=== PATIENT | female | born 1965 | race Caucasian/White ===

== ENCOUNTER 2016-09-13 07:33 | Day surgery (SDC) | payer OTHER ==
[~2016-09-13 07:33] MED LIST: LACTATED RINGERS 1,000 ML IV ONE
[2016-09-13] MEDS ORDERED: fentaNYL 250 MCG/5 ML VIAL IVP ONE (08:30)
[2016-09-13] MEDS ORDERED: MIDAZOLAM 2 MG/2 ML VIAL IVP ONE (08:30)
== END 2016-09-13 07:34 | disposition home or self-care (01) ==
PROC: 0DJD8ZZ Inspection of Lower Intestinal Tract, Via Natural or Artificial Opening Endoscopic (ICD-10-PCS; principal; 2016-09-13 08:30)
DX: K62.5 Hemorrhage of anus and rectum (principal); R10.30 Lower abdominal pain, unspecified; K64.8 Other hemorrhoids; Z86.010 Personal history of colon polyps; Z80.0 Family history of malignant neoplasm of digestive organs; Z87.891 Personal history of nicotine dependence
CPT/HCPCS: 45378; J3010; J7120

== ENCOUNTER 2016-12-15 11:27 | Outpatient (CLI) | payer OTHER | END 2016-12-15 11:28 | disposition home or self-care (01) | DX: M25.521 Pain in right elbow (principal) ==

== ENCOUNTER 2016-12-29 06:30 | Outpatient (CLI) | payer OTHER ==
[2016-12-29 06:48] LABS: BASOPHILS % (AUTO) 0.9 %; EOSINOPHILS # (AUTO) 0.1 10^3/uL (0.0-0.7); EOSINOPHILS % (AUTO) 1.4 %; HGB - HEMOGLOBIN 13.6 g/dL (12.0-16.0); LYMPHOCYTES # (AUTO) 1.4 10^3/uL (1.5-3.5); LYMPHOCYTES % (AUTO) 32.3 %; MEAN CORPUSCULAR VOLUME 91.1 fL (81.0-99.0); MEAN PLATELET VOLUME 9.4 fL (7.9-10.8); MONOCYTES # (AUTO) 0.4 10^3/uL (0.0-1.0); MONOCYTES % (AUTO) 9.9 %; NEUTROPHILS # (AUTO) 2.4 10^3/uL (1.5-6.6); NEUTROPHILS % (AUTO) 55.5 %; NUCLEATED RED BLOOD CELLS AUTO 0.2 /100WBC; RED BLOOD COUNT 4.39 10^6/uL (4.20-5.40); RED CELL DISTRIBUTION WIDTH 12.5 % (12.0-15.0); UNCORRECTED WHITE BLOOD COUNT 4.4 x10^3/uL; WHITE BLOOD COUNT 4.4 x10^3/uL (4.8-10.8)
[2016-12-29 07:04] LABS: ALBUMIN/GLOBULIN RATIO 1.6 (1.0-2.2); BUN - BLOOD UREA NITROGEN 15 mg/dL (6-20); CALCIUM 9.2 mg/dL (8.5-10.3); CARBON DIOXIDE - CO2 27 mmol/L (21-32); CHLORIDE 104 mmol/L (101-111); CHOL/HDL RATIO 3.5 (<4.4); CHOLESTEROL 209 mg/dL; CREATININE 0.7 mg/dL (0.4-1.0); GFR - MDRD 88 (>89); GLUCOSE 102 mg/dL (70-100); HDL CHOLESTEROL 60 mg/dL; LDL/HDL RATIO 2.2 (<4.4); POTASSIUM 4.2 mmol/L (3.5-5.0); SODIUM 137 mmol/L (135-145); TOTAL PROTEIN 7.3 g/dL (6.7-8.2); TRIGLYCERIDES 92 mg/dL; VLDL CHOLESTEROL 18 mg/dL
== END 2016-12-29 06:31 | disposition home or self-care (01) ==
LOC: LAB 06:30
PROVIDERS: ATTEND Physician Assistant Medical
DX: Z00.00 Encounter for general adult medical examination without abnormal findings (principal)
CPT/HCPCS: 36415; 80053; 80061; 84443; 85025

== ENCOUNTER 2017-01-09 07:54 | Emergency (ER) | payer OTHER ==
--- NOTE | 2017-01-09 08:31 | ED Physician Documentation ---
History of Present Illness - Stated complaint Stated Complaint: CHEST PX/BACK PX - Chief complaint Chief Complaint: Cardiac - Additonal information Additional information: hx from pt 51 female hx HTN not CAD posterior L shoulder ache all night and this AM sharp int brief ant chest pains no soa no change in night sweats she has 2.2 menopause no fever no cough no abd pain no leg swelling no reecent travel HTN but no DM no hyperlipidemia non smoker no fhx CAD Review of Systems Constitutional: denies: Fever, Chills Cardiac: reports: Chest pain / pressure GI: denies: Abdominal Pain, Nausea, Vomiting Musculoskeletal: reports: Back pain Neurologic: denies: Generalized weakness Endocrine: denies: Easy bruising / bleeding Immunocompromised: denies: Immunocompromised PD PAST MEDICAL HISTORY - Past Medical History Cardiovascular: Hypertension Respiratory: None GI: None, Colon polyps : None HEENT: None Psych: Anxiety Musculoskeletal: Other - Past Surgical History Past Surgical History: Yes General: Appendectomy, Colonoscopy 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, 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 - Present Medications Home Medications: Ambulatory Orders Medication Instructions Recorded Confirmed Lisinopril 10 mg PO DAILY 01/31/13 01/09/17 - Allergies Allergies/Adverse Reactions: Allergies Allergy/AdvReac Type Severity Reaction Status Date / Time No Known Drug Allergies Allergy Verified 01/09/17 08:15 - Social History Does the pt smoke?: No Smoking Status: Never smoker Does the pt drink ETOH?: Yes Does the pt have substance abuse?: No - Immunizations Immunizations are current?: Yes - POLST Patient has POLST: No PD ED PE NORMAL - Vitals Vital signs reviewed: Yes - General General: Alert and oriented X 3 - HEENT HEENT: PERRL - Neck Neck: Supple, no meningeal sign - Cardiac Cardiac: RRR - Respiratory Respiratory: No respiratory distress, Clear bilaterally - Abdomen Abdomen: Soft, Non tender - Derm Derm: Normal color - Extremities Extremities: No deformity, Normal ROM s pain, No edema, No calf tenderness / cord - Neuro Neuro: Alert and oriented X 3 Results - Vitals Vitals: Vital Signs - 24 hr 01/09/17 01/09/17 08:11 08:39 Temperature 36.4 C L Heart Rate 61 57 L Respiratory 16 17 Rate Blood Pressure 160/105 H 134/83 H O2 Saturation 100 100 Oxygen O2 Source Room air - EKG (time done) 0805 Rate: Rate (enter#) Rhythm: NSR [place]: Normal Intervals: Normal CT QRS: Normal Ischemia: Non specific changes (inv T III flat AVF) - Labs Labs: Laboratory Tests 01/09/17 01/09/17 01/09/17 08:38 08:38 08:38 WBC 4.5 L RBC 4.45 Hgb 13.6 Hct 40.0 MCV 89.9 MCH 30.5 MCHC 34.0 RDW 12.5 Plt Count 183 MPV 9.1 Neut # 2.8 Lymph # 1.3 L Gallia # 0.3 Eos # 0.0 Baso # 0.0 Absolute Nucleated RBC 0.00 Nucleated RBCs 0.0 D-Dimer Sodium 137 Potassium 4.0 Chloride 101 Carbon Dioxide 29 Anion Gap 7.0 BUN 13 Creatinine 0.7 Estimated GFR (MDRD) 88 L Glucose 91 Calcium 9.3 Total Bilirubin 0.6 AST 24 ALT 18 Alkaline Phosphatase 54 Troponin I < 0.04 Total Protein 7.4 Albumin 4.5 Globulin 2.9 Albumin/Globulin Ratio 1.6 Lipase 34 01/09/17 08:38 WBC RBC Hgb Hct MCV MCH MCHC RDW Plt Count MPV Neut # Lymph # Gallia # Eos # Baso # Absolute Nucleated RBC Nucleated RBCs D-Dimer < 200.0 L Sodium Potassium Chloride Carbon Dioxide Anion Gap BUN Creatinine Estimated GFR (MDRD) Glucose Calcium Total Bilirubin AST ALT Alkaline Phosphatase Troponin I Total Protein Albumin Globulin Albumin/Globulin Ratio Lipase - Rads (name of study) CXR Radiology: See rad report (normal, nl tight aortic known, no cap no effusion) PD MEDICAL DECISION MAKING - ED course ED course: neg trop after sx all night essentially rules out ACS neg PERC except 1 yr over 50 - so got d dimer and it is neg too ed symm BPs and tight aortic known on CXR doubt aneurysm or dissection will reassure and dc Departure - Departure Disposition: 01 Home, Self Care Clinical Impression: Chest pain Qualifiers: Chest pain type: unspecified Qualified Code(s): R07.9 - Chest pain, unspecified Condition: Good Instructions: ED Chest Pain Atypical Unkn Cause Follow-Up: Preeti Clayton PA-C [Primary Care Provider] - Comments: The EKG and blood tests are reassuring and it does not seem you have had a heart attack The xray and blood pressures indicate you do not have an aortic aneursym and dissection (tear) And the d dimer blood test was negative indicating you do not have a blood clot in your lungs Unfortunately I am not sure what did cause the pain But the most dangerous causes of chest pain have been considered and ruled out and you are feeling better so i think it is OK for you to go home. May tale tylenol and motrin as needed. Please follow up with your PMD for a recheck this week unless completely better - and to get your blood pressure rechecked - it was high today Return to the ER if worse or new symptoms develop Forms: Activity restrictions
[2017-01-09 08:48] LABS: BASOPHILS % (AUTO) 0.6 %; EOSINOPHILS % (AUTO) 0.9 %; HGB - HEMOGLOBIN 13.6 g/dL (12.0-16.0); LYMPHOCYTES # (AUTO) 1.3 10^3/uL (1.5-3.5); MEAN CORPUSCULAR HEMOGLOBIN 30.5 pg (27.0-31.0); MEAN CORPUSCULAR VOLUME 89.9 fL (81.0-99.0); MEAN PLATELET VOLUME 9.1 fL (7.9-10.8); MONOCYTES # (AUTO) 0.3 10^3/uL (0.0-1.0); MONOCYTES % (AUTO) 7.7 %; NEUTROPHILS # (AUTO) 2.8 10^3/uL (1.5-6.6); NEUTROPHILS % (AUTO) 61.8 %; RED BLOOD COUNT 4.45 10^6/uL (4.20-5.40); RED CELL DISTRIBUTION WIDTH 12.5 % (12.0-15.0); UNCORRECTED WHITE BLOOD COUNT 4.5 x10^3/uL; WHITE BLOOD COUNT 4.5 x10^3/uL (4.8-10.8)
[2017-01-09 09:01] LABS: ALBUMIN/GLOBULIN RATIO 1.6 (1.0-2.2); BILIRUBIN,TOTAL 0.6 mg/dL (0.2-1.0); CALCIUM 9.3 mg/dL (8.5-10.3); CREATININE 0.7 mg/dL (0.4-1.0); TOTAL PROTEIN 7.4 g/dL (6.7-8.2)
--- NOTE | 2017-01-09 09:10 | XRAY Preliminary Report ---
Exam: XR Chest 2 View PA/LAT Impression: Normal radiographs of the chest. Interval resolution of the previously demonstrated right lower lobe infiltrate. [facility] SITE ID: [id number]
--- NOTE | 2017-01-09 09:13 | XRAY Report ---
EXAM: CHEST RADIOGRAPHY EXAM DATE: 01/09/2017 08:24 AM. CLINICAL HISTORY: Chest pain. COMPARISON: 07/03/2013. TECHNIQUE: 2 views. FINDINGS: The heart is nonenlarged. There is no pulmonary mass, infiltrate, pleural effusion or pneumothorax. T he previously demonstrated right lower lobe infiltrate has resolved. Impression: Normal radiographs of the chest. Interval resolution of the previously demonstrated right lower lobe infiltrate. [facility] Referring Provider Line: [phone] SITE ID: [id number]
[2017-01-09 10:35] VITALS: BP 121/68
== END 2017-01-09 10:36 | disposition home or self-care (01) ==
LOC: ED 07:54
DX: R07.9 Chest pain, unspecified (principal); I10 Essential (primary) hypertension; Z86.010 Personal history of colon polyps
CPT/HCPCS: 36415; 71020; 80053; 83690; 84484; 85025; 85379; 93005; 93010; 99284

== ENCOUNTER 2017-01-12 13:51 | Outpatient (CLI) | payer OTHER | END 2017-01-12 13:52 | disposition home or self-care (01) | LOC: CAM 13:51 | PROVIDERS: ATTEND Physician Assistant Medical | DX: M25.521 Pain in right elbow (principal) | CPT/HCPCS: 97810; 97811 ==

== ENCOUNTER 2017-01-19 13:28 | Outpatient (CLI) | payer OTHER | END 2017-01-19 13:29 | disposition home or self-care (01) | LOC: CAM 13:28 | PROVIDERS: ATTEND Physician Assistant Medical | DX: M25.521 Pain in right elbow (principal) | CPT/HCPCS: 97813; 97814 ==

== ENCOUNTER 2017-01-26 14:12 | Outpatient (CLI) | payer OTHER | END 2017-01-26 14:13 | disposition home or self-care (01) | LOC: CAM 14:12 | PROVIDERS: ATTEND Physician Assistant Medical | DX: M25.521 Pain in right elbow (principal) | CPT/HCPCS: 97813; 97814 ==

== ENCOUNTER 2017-02-02 13:15 | Outpatient (CLI) | payer OTHER | END 2017-02-02 13:16 | disposition home or self-care (01) | LOC: CAM 13:15 | PROVIDERS: ATTEND Physician Assistant Medical | DX: M25.521 Pain in right elbow (principal) | CPT/HCPCS: 97813; 97814 ==

== ENCOUNTER 2017-02-09 14:23 | Outpatient (CLI) | payer OTHER | END 2017-02-09 14:24 | disposition home or self-care (01) | LOC: CAM 14:23 | PROVIDERS: ATTEND Physician Assistant Medical | DX: M25.521 Pain in right elbow (principal) | CPT/HCPCS: 97813; 97814 ==

== ENCOUNTER 2017-02-21 15:14 | Outpatient (CLI) | payer OTHER ==
--- NOTE | 2017-02-23 09:54 | XRAY Report ---
RIGHT ELBOW, THREE VIEWS: 02/21/2017 CLINICAL HISTORY: Tennis elbow. FINDINGS: Soft tissue appears normal. Minor spur is seen along the superior posterior aspect of the olecranon. No significant joint space narrowing is seen. No soft tissue calcification is noted. IMPRESSION: MINOR SPUR IS NOTED ALONG THE POSTERIOR SUPERIOR ASPECT OF THE OLECRANON WITHOUT OTHER A BNORMALITY. JOB #: [id number] EXT JOB #:[id number]
== END 2017-02-21 15:15 | disposition home or self-care (01) ==
LOC: DI 15:14
PROVIDERS: ATTEND Physician Assistant Medical
DX: M77.9 Enthesopathy, unspecified (principal)

== ENCOUNTER 2017-08-24 13:43 | Outpatient (CLI) | payer OTHER ==
--- NOTE | 2017-08-25 16:49 | Mammography Report ---
DATE OF SERVICE: 08/24/2017 DIGITAL SCREENING MAMMOGRAM: 08/24/2017 CLINICAL INDICATION: A 52-year-old with history of late childbearing, family history of breast cancer, history of benign right breast biopsy, for screening. COMPARISON: 06/2016, 02/2016, 07/2015, 06/2015, 03/2014, 03/2013, 03/2012, 02/2011. TECHNIQUE: Routine CC and MLO projections were obtained of the breasts. FINDINGS: The breasts again demonstrate scattered fibroglandular densities bilaterally. Postbiopsy changes in the right upper central breast are stable. Punctate, typically benign calcifications are present. No suspicious masses, clustered microcalcifications, or regions of architectural distortion are identified. IMPRESSION: BENIGN FINDINGS. RECOMMENDATION: ROUTINE ANNUAL SCREENING UNLESS OTHERWISE CLINICALLY INDICATED. BIRADS CATEGORY 2-BENIGN FINDINGS. STANDARD QUALIFYING STATEMENTS: 1. This examination was reviewed with the aid of Computer-Aided Detection (CAD). 2. A negative or benign imaging report should not delay biopsy if clinically suspicious findings are present. Consider surgical consultation if warranted. More than 5% of cancers are not identified by imaging. 3. Dense breasts may obscure an underlying neoplasm. TD: 08/25/2017 17:48
== END 2017-08-24 13:44 | disposition home or self-care (01) ==
LOC: DI 13:43
PROVIDERS: ATTEND Physician Assistant Medical
DX: Z12.31 Encounter for screening mammogram for malignant neoplasm of breast (principal); Z80.3 Family history of malignant neoplasm of breast
CPT/HCPCS: 77067

== ENCOUNTER 2017-09-21 08:15 | Outpatient (CLI) | payer OTHER ==
[2017-09-21 08:31] LABS: BASOPHILS % (AUTO) 0.7 %; EOSINOPHILS # (AUTO) 0.1 10^3/uL (0.0-0.7); EOSINOPHILS % (AUTO) 1.5 %; LYMPHOCYTES # (AUTO) 1.4 10^3/uL (1.5-3.5); LYMPHOCYTES % (AUTO) 30.7 %; MEAN CORPUSCULAR HEMOGLOBIN 31.2 pg (27.0-31.0); MEAN CORPUSCULAR VOLUME 91.5 fL (81.0-99.0); MEAN PLATELET VOLUME 8.5 fL (7.9-10.8); MONOCYTES # (AUTO) 0.4 10^3/uL (0.0-1.0); NEUTROPHILS # (AUTO) 2.6 10^3/uL (1.5-6.6); NEUTROPHILS % (AUTO) 58.1 %; PLT - PLATELET COUNT 191 10^3/uL (130-450); RED BLOOD COUNT 4.49 10^6/uL (4.20-5.40); RED CELL DISTRIBUTION WIDTH 12.8 % (12.0-15.0); WHITE BLOOD COUNT 4.4 x10^3/uL (4.8-10.8)
[2017-09-21 08:50] LABS: ALBUMIN 4.8 g/dL (3.2-5.5); ALBUMIN/GLOBULIN RATIO 1.5 (1.0-2.2); ALKALINE PHOSPHATASE 58 IU/L (42-121); ALT ALANINE AMINOTRANSFERASE 29 IU/L (10-60); AST ASPARTATE AMINOTRANSFERASE 36 IU/L (10-42); BILIRUBIN,TOTAL 0.8 mg/dL (0.2-1.0); BUN - BLOOD UREA NITROGEN 12 mg/dL (6-20); CALCIUM 9.4 mg/dL (8.5-10.3); CARBON DIOXIDE - CO2 26 mmol/L (21-32); CHLORIDE 98 mmol/L (101-111); CHOL/HDL RATIO 2.9 (<4.4); CHOLESTEROL 268 mg/dL; CREATININE 0.8 mg/dL (0.4-1.0); GFR - MDRD 75 (>89); GLUCOSE 98 mg/dL (70-100); HDL CHOLESTEROL 93 mg/dL; LDL CHOLESTEROL,CALCULATED 159 mg/dL; LDL/HDL RATIO 1.7 (<4.4); SODIUM 136 mmol/L (135-145); TOTAL PROTEIN 7.9 g/dL (6.7-8.2); VLDL CHOLESTEROL 16 mg/dL
[2017-09-22 13:42] LABS: HEPATITIS C ANTIBODY NON-REACTIVE (NON-REACTIVE)
== END 2017-09-21 08:16 | disposition home or self-care (01) ==
LOC: LAB 08:15
PROVIDERS: ATTEND Physician Assistant Medical
DX: Z00.00 Encounter for general adult medical examination without abnormal findings (principal); Z11.59 Encounter for screening for other viral diseases; Z72.89 Other problems related to lifestyle
CPT/HCPCS: 36415; 80053; 80061; 83721; 84443; 85025; 86803

== ENCOUNTER 2018-06-21 10:14 | Outpatient (CLI) | payer OTHER ==
--- NOTE | 2018-06-21 11:40 | XRAY Report ---
Reason: HIP JOINT PAIN, RIGHT Procedure Date: 06/21/2018 Accession Number: [id number] / [id number] Procedure: XR - Hip w/Pelvis 2-3V RT CPT Code: FULL RESULT: EXAM: RIGHT HIP AND PELVIS RADIOGRAPHY EXAM DATE: 06/21/2018 10:34 AM. HISTORY: Hip joint pain, right. COMPARISONS: None. TECHNIQUE: 1 view of the pelvis and 1 view of the hip. FINDINGS: Bones: Normal. No fracture or bone lesion. Joints: The bilateral hip, pubis symphysis, and sacroiliac joints are preserved. Degenerative disk changes noted at L4-L5 and bilateral facet arthrosis noted at L4-L5 and L5-S1. Soft Tissues: Normal. No soft tissue swelling. IMPRESSION: Normal pelvis and hip radiography. [facility]
--- NOTE | 2018-06-21 11:42 | XRAY Report ---
Reason: CERVICALGIA Procedure Date: 06/21/2018 Accession Number: [id number] / [id number] Procedure: XR - Cervical Spine Complete CPT Code: FULL RESULT: EXAM: CERVICAL SPINE RADIOGRAPHY EXAM DATE: 06/21/2018 10:34 AM. CLINICAL HISTORY: Cervicalgia. COMPARISONS: CERVICAL SPINE W/O 11/27/2014 11:21 AM. TECHNIQUE: 5 views. FINDINGS: Alignment: Normal. No spondylolisthesis or scoliosis. Normal motion through flexion and extension. Bones: The cervical vertebral bodies and posterior elements are well-visualized from the skull base through C7-T1. No fractures or bone lesions. Disks: Mild disk space narrowing and anterior osteophyte at C5-C6. Facets: No degenerative disease. Neural Foramina: Not specifically evaluated. Soft Tissues: Normal. No prevertebral soft tissue swelling. The visualized lung apices are clear. IMPRESSION: Normal cervical spine radiography for age. [facility]
== END 2018-06-21 10:15 | disposition home or self-care (01) ==
LOC: DI 10:14
PROVIDERS: ATTEND Physician Assistant Medical
DX: M54.2 Cervicalgia (principal); M25.551 Pain in right hip
CPT/HCPCS: 72050

== ENCOUNTER 2018-08-24 08:05 | Outpatient (CLI) | payer BC ==
[2018-08-24 08:25] LABS: BASOPHILS % (AUTO) 0.6 %; EOSINOPHILS # (AUTO) 0.1 10^3/uL (0.0-0.7); EOSINOPHILS % (AUTO) 1.8 %; HGB - HEMOGLOBIN 13.9 g/dL (12.0-16.0); LYMPHOCYTES # (AUTO) 1.1 10^3/uL (1.5-3.5); LYMPHOCYTES % (AUTO) 28.1 %; MEAN CORPUSCULAR HGB CONC 34.5 g/dL (32.0-36.0); MEAN CORPUSCULAR VOLUME 92.8 fL (81.0-99.0); MONOCYTES # (AUTO) 0.3 10^3/uL (0.0-1.0); MONOCYTES % (AUTO) 8.8 %; NEUTROPHILS # (AUTO) 2.3 10^3/uL (1.5-6.6); NEUTROPHILS % (AUTO) 60.7 %; PLT - PLATELET COUNT 186 10^3/uL (130-450); RED BLOOD COUNT 4.35 10^6/uL (4.20-5.40); WHITE BLOOD COUNT 3.9 x10^3/uL (4.8-10.8)
[2018-08-24 09:36] LABS: ALBUMIN 4.6 g/dL (3.2-5.5); ALBUMIN/GLOBULIN RATIO 1.5 (1.0-2.2); ALKALINE PHOSPHATASE 60 IU/L (42-121); ALT ALANINE AMINOTRANSFERASE 18 IU/L (10-60); AST ASPARTATE AMINOTRANSFERASE 27 IU/L (10-42); BILIRUBIN,TOTAL 0.6 mg/dL (0.2-1.0); BUN - BLOOD UREA NITROGEN 10 mg/dL (6-20); CALCIUM 9.4 mg/dL (8.5-10.3); CARBON DIOXIDE - CO2 29 mmol/L (21-32); CHLORIDE 103 mmol/L (101-111); CHOLESTEROL 256 mg/dL; CREATININE 0.8 mg/dL (0.4-1.0); GFR - MDRD 75 (>89); GLUCOSE 87 mg/dL (70-100); HDL CHOLESTEROL 86 mg/dL; LDL CHOLESTEROL,CALCULATED 145 mg/dL; LDL/HDL RATIO 1.7 (<4.4); SODIUM 138 mmol/L (135-145); TOTAL PROTEIN 7.7 g/dL (6.7-8.2); VLDL CHOLESTEROL 25 mg/dL
== END 2018-08-24 08:06 | disposition home or self-care (01) ==
LOC: LAB 08:05
PROVIDERS: ATTEND Physician Assistant Medical
DX: Z00.00 Encounter for general adult medical examination without abnormal findings (principal)
CPT/HCPCS: 36415; 80053; 80061; 83721; 84443; 85025

== ENCOUNTER 2018-08-29 11:21 | Outpatient (CLI) | payer BC ==
--- NOTE | 2018-08-30 08:38 | Mammography Report ---
Reason: SCREENING MAMMO Procedure Date: 08/29/2018 Accession Number: [id number] / [id number] Procedure: JAKOB - Screening Mammo w/Og CPT Code: FULL RESULT: EXAM: Screening Mammo w/Og DATE: 08/29/2018 11:55 AM CLINICAL HISTORY: Screening encounter. History of late childbearing. Family history of breast cancer in the mother at the age of 62. Right breast biopsy in 2016, benign pathology. TECHNIQUE: Bilateral CC and MLO views were obtained. COMPARISON: 08/24/2017 through 03/12/2014. FINDINGS: The breasts demonstrate scattered fibroglandular densities bilaterally. A biopsy marker is seen in the right breast, stable. No suspicious masses, clustered microcalcifications, or regions of architectural distortion are identified. IMPRESSION: Benign findings RECOMMENDATION: Routine annual screening unless otherwise clinically indicated. BIRADS CATEGORY 2: Benign findings STANDARD QUALIFYING STATEMENTS: 1. This examination was not reviewed with the aid of Computer-Aided Detection (CAD). 2. A negative or benign imaging report should not preclude biopsy if clinically suspicious findings are present. 3. Dense breasts may obscure an underlying neoplasm. 4. This examination was reviewed with the aid of 3D breast imaging (tomosynthesis).
== END 2018-08-29 11:22 | disposition home or self-care (01) ==
LOC: DI 11:21
PROVIDERS: ATTEND Physician Assistant Medical
DX: Z12.31 Encounter for screening mammogram for malignant neoplasm of breast (principal); Z80.3 Family history of malignant neoplasm of breast
CPT/HCPCS: 77063; 77067

== ENCOUNTER 2019-04-22 09:13 | Observation (INO) | payer BC ==
--- NOTE | 2019-04-22 09:39 | ED Physician Documentation ---
PD HPI DYSPNEA - Stated complaint Stated Complaint: RAPID HEART RATE - Chief complaint Chief Complaint: Cardiac - History obtained from History obtained from: Patient - History of Present Illness Timing - onset: How many days ago (The patient states she been feeling a little bit fatigued and slightly short of breath for several days up to a week. She noticed it with running last week and then had been more dyspneic with activity and slight lightheaded last day or 2. 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 She was directed to the ER. She was found to be in rapid atrial fibrillation.) Timing - onset during: Rest Timing - duration: Days Timing - details: Abrupt onset, Still present Inciting event(s): Other (She drinks a little bit more on weekends but not every day. She had not had any stimulants medications such as drugs. She had not had any recent illness. She denies any recent dehydrating events.). No: URI Worsened by: Exertion. No: Laying flat Associated symptoms: Palpitations. No: Cough, Wheezing, Chest pain / discomfort, Bilateral edema Similar symptoms before: Has not had sx before (She had a chest pain episode and some anxiety type symptoms about 6 years ago and had an echocardiogram and I believe a Holter monitor and saw Dr. Catracho Royal. However no abnormalities were found.) Recently seen: Not recently seen Review of Systems Constitutional: denies: Fever, Chills Nose: denies: Rhinorrhea / runny nose, Congestion Throat: denies: Sore throat Cardiac: reports: Palpitations. denies: Chest pain / pressure, Pedal edema, Calf pain Respiratory: denies: Cough GI: denies: Abdominal Pain, Nausea, Vomiting, Diarrhea : denies: Dysuria, Frequency Neurologic: reports: Generalized weakness. 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 - Present Medications Home Medications: Ambulatory Orders Medication Instructions Recorded Confirmed Lisinopril 10 mg PO DAILY 01/31/13 04/22/19 - Allergies Allergies/Adverse Reactions: Allergies Allergy/AdvReac Type Severity Reaction Status Date / Time No Known Drug Allergies Allergy Verified 04/22/19 09:23 - Social History Does the pt smoke?: No Smoking Status: Never smoker Does the pt drink ETOH?: Yes Does the pt have substance abuse?: No - Immunizations Immunizations are current?: Yes - POLST Patient has POLST: No PD ED PE NORMAL - Vitals Vital signs reviewed: Yes - General General: Alert and oriented X 3, No acute distress, Well developed/nourished - HEENT HEENT: Moist mucous membranes, Pharynx benign - Neck Neck: Supple, no meningeal sign, No adenopathy, No JVD - Cardiac Cardiac: No murmur. No: RRR (irregular and rapid) - Respiratory Respiratory: Clear bilaterally - Abdomen Abdomen: Soft, Non tender - Back Back: No CVA TTP - Derm Derm: Normal color, Warm and dry - Extremities Extremities: No deformity, No tenderness to palpate, Normal ROM s pain, No edema, No calf tenderness / cord - Neuro Neuro: Alert and oriented X 3, No motor deficit, Normal speech Eye Opening: Spontaneous Motor: Obeys Commands Verbal: Oriented GCS Score: 15 Results - Vitals Vitals: Vital Signs - 24 hr 04/22/19 04/22/19 04/22/19 09:18 09:29 10:10 Temperature 35.7 C L Heart Rate 139 H 140 H 122 H Respiratory 12 16 18 Rate Blood Pressure 145/113 H 147/124 H 133/96 H O2 Saturation 100 100 100 04/22/19 04/22/19 04/22/19 10:22 11:11 12:00 Temperature Heart Rate 84 84 97 Respiratory 18 18 12 Rate Blood Pressure 114/69 125/90 H 113/76 O2 Saturation 100 100 100 04/22/19 04/22/19 04/22/19 12:30 12:56 13:06 Temperature Heart Rate 111 H 88 79 Respiratory 19 24 22 Rate Blood Pressure 130/91 H 141/101 H 125/96 H O2 Saturation 100 99 100 04/22/19 04/22/19 04/22/19 13:15 13:27 13:30 Temperature Heart Rate 85 88 90 Respiratory 14 21 16 Rate Blood Pressure 125/85 H 123/82 H 122/93 H O2 Saturation 100 100 98 Oxygen O2 Source Room air - EKG (time done) 09:15 Rate: Rate (enter#) (140) Rhythm: Atrial fibrillation QRS: Normal Ischemia: Normal ST segments. No: ST elevation c/w ischemia, ST depression Compare to prior EKG: Old EKG unavailable - Labs Labs: Laboratory Tests 04/22/19 04/22/19 04/22/19 09:20 09:20 09:20 WBC RBC Hgb Hct MCV MCH MCHC RDW Plt Count MPV Neut # (Auto) Lymph # (Auto) [place] # (Auto) Eos # (Auto) Baso # (Auto) Absolute Nucleated RBC Nucleated RBC % Sodium Potassium Chloride Carbon Dioxide Anion Gap BUN Creatinine Estimated GFR (MDRD) Glucose Calcium Magnesium 1.9 Total Bilirubin AST ALT Alkaline Phosphatase Troponin I High Sens 7.3 B-Natriuretic Peptide 195 H Total Protein Albumin Globulin Albumin/Globulin Ratio Lipase TSH 04/22/19 04/22/19 04/22/19 09:20 09:27 09:27 WBC 6.4 RBC 4.75 Hgb 15.0 Hct 44.4 MCV 93.5 MCH 31.6 H MCHC 33.8 RDW 11.7 L Plt Count 211 MPV 11.3 H Neut # (Auto) 3.7 Lymph # (Auto) 2.0 [place] # (Auto) 0.6 Eos # (Auto) 0.1 Baso # (Auto) 0.0 Absolute Nucleated RBC 0.00 Nucleated RBC % 0.0 Sodium 139 Potassium 4.3 Chloride 100 L Carbon Dioxide 28 Anion Gap 11.0 BUN 21 H Creatinine 0.9 Estimated GFR (MDRD) 65 L Glucose 105 H Calcium 9.9 Magnesium Total Bilirubin 0.6 AST 23 ALT 17 Alkaline Phosphatase 65 Troponin I High Sens B-Natriuretic Peptide Total Protein 7.9 Albumin 4.6 Globulin 3.3 Albumin/Globulin Ratio 1.4 Lipase 52 H TSH 1.91 PD MEDICAL DECISION MAKING - ED course Complexity details: re-evaluated patient (Heart rate slowed will diltiazem for a while and then went back up to 120s. She is given a second dose and it did improve it down to under 100. She is given procainamide 1 g over an hour and a half. This is allowing her heart rate to be slow at 8200. However it still fibrillation. This is a new onset fibrillation of unclear onset time but apparently somewhere in the last several days to week. She will need further heart testing of echo and also anticoagulated. My main concern in the short- term is ensuring rate control with proper oral medications. I talked with the hospitalist who agreed to have her in for further evaluation and rate control.), considered differential, d/w patient Departure - Departure Disposition: ED Place in Observation Clinical Impression: New onset atrial fibrillation, Atrial fibrillation with rapid ventricular response Condition: Stable Record reviewed to determine appropriate education?: Yes
[2019-04-22 09:51] LABS: BASOPHILS % (AUTO) 0.6 %; EOSINOPHILS # (AUTO) 0.1 10^3/uL (0.0-0.7); EOSINOPHILS % (AUTO) 1.1 %; LYMPHOCYTES % (AUTO) 31.7 %; MEAN CORPUSCULAR HEMOGLOBIN 31.6 pg (27.0-31.0); MEAN CORPUSCULAR HGB CONC 33.8 g/dL (32.0-36.0); MEAN CORPUSCULAR VOLUME 93.5 fL (81.0-99.0); MEAN PLATELET VOLUME 11.3 fL (7.9-10.8); MONOCYTES # (AUTO) 0.6 10^3/uL (0.0-1.0); MONOCYTES % (AUTO) 8.7 %; NEUTROPHILS # (AUTO) 3.7 10^3/uL (1.5-6.6); NEUTROPHILS % (AUTO) 57.4 %; PLT - PLATELET COUNT 211 10^3/uL (130-450); RED BLOOD COUNT 4.75 10^6/uL (4.20-5.40); RED CELL DISTRIBUTION WIDTH 11.7 % (12.0-15.0); WHITE BLOOD COUNT 6.4 x10^3/uL (4.8-10.8)
--- NOTE | 2019-04-22 10:03 | XRAY Report ---
Reason: palpitations, new onset afib Procedure Date: 04/22/2019 Accession Number: [id number] / [id number] Procedure: XR - Chest 1 View X-Ray CPT Code: 57323 FULL RESULT: EXAM: CHEST RADIOGRAPHY EXAM DATE: 04/22/2019 09:54 AM. CLINICAL HISTORY: Palpitations, new onset afib. COMPARISON: CHEST 2 VIEW PA/LAT 01/09/2017 8:14 AM. TECHNIQUE: 1 view. FINDINGS: Lungs/Pleura: No focal opacities evident. No pleural effusion. No pneumothorax. Mediastinum: Size is normal per aorta is mildly tortuous. Other: None. IMPRESSION: 1. No acute disease in the chest. [facility]
[2019-04-22] MEDS ORDERED: diltiaZEM INJ 5 MG/ML VIAL IVP STA ×2 (10:08→12:30)
[2019-04-22] MEDS ORDERED: PROCAINAMIDE 100 MG/1 ML 10 ML MDV IV ONE (10:08)
[2019-04-22] MEDS ORDERED: SODIUM CHLORIDE 0.9% 1,000 ML IV ONE ×2 (10:10→11:30)
[2019-04-22 10:18] LABS: ALBUMIN 4.6 g/dL (3.2-5.5); ALBUMIN/GLOBULIN RATIO 1.4 (1.0-2.2); BILIRUBIN,TOTAL 0.6 mg/dL (0.2-1.0); CALCIUM 9.9 mg/dL (8.5-10.3); CREATININE 0.9 mg/dL (0.4-1.0); TOTAL PROTEIN 7.9 g/dL (6.7-8.2)
[2019-04-22] MEDS ORDERED: PROCAINAMIDE 100 MG/1 ML 10 ML MDV IV STA (10:37)
[2019-04-22] MEDS ORDERED: PROCAINAMIDE 1,000 MG in SODIUM CHLORIDE 0.9% 240 ML IV STA (10:40)
[2019-04-22] MEDS ORDERED: KETOROLAC 30 MG/ML VIAL IVP STA (12:30)
[2019-04-22] MEDS ORDERED: SODIUM CHLORIDE FLUSH 0.9% 10 ML SYRINGE IVP PRN (13:51)
[2019-04-22] MEDS ORDERED: ACETAMINOPHEN 325 MG TABLET PO PRN (13:51)
[2019-04-22] MEDS ORDERED: PROCHLORPERAZINE 10 MG/2 ML VIAL IVP PRN (13:51)
[2019-04-22] MEDS ORDERED: oxyCODONE 5 MG TABLET PO PRN (13:51)
[2019-04-22] MEDS ORDERED: diltiaZEM CD 120 MG CAPSULE PO SCH (13:56)
[2019-04-22] MEDS ORDERED: diltiaZEM CD 180 MG CAPSULE PO SCH ×2 (14:27→15:09)
--- NOTE | 2019-04-22 14:28 | HISTORY & PHYSICAL EXAMINATION ---
Chief Complaint - Chief Complaint Chief Complaint: dyspnea History of Present Illness - History of Present Illness HPI Comment/Other: Ms. Medina is a 53-yrs old female with a PMH history of HTN, anxiety, who present ER complain of palpitation, tired and mild shortness of breath. pt report she felt fatigued and slightly short of breath for about one week. she also report slight lightheaded and palpitation. pt report her brother was diagnosis of Afib at 54yrs old. Her mother had hx of Afib, her father had pacemaker. she denies chest pain, pre-syncope or syncope, fever, chill, cough. pt was found to have HR at 140 with afib on ER. ECHO done at ER reveals unremarkable with normal EF. Because of unclear the exact time pt started to have Afib, cardiac conversion was not performed. Pt's CHADSVASC score is 2. Discussion with pt for if starting on anticoagulation, pt state she prefer to talk with her wagon driver on this week first. pt was given IV of cardizem and IV drop of procainamide, pt's HR is down to about 100. pt report she feel much better after treatment. she denies palpitation or shortness of breath any more. pt is admitted in observation unit for further management. History - Past Medical History Cardiovascular: reports: Hypertension Respiratory: reports: None GI: reports: None, Colon polyps : reports: None HEENT: reports: None Psych: reports: Anxiety Musculoskeletal: reports: Other MRSA Hx?: No - Past Surgical History General: reports: Appendectomy, Colonoscopy Ortho: reports: Other /OCULAR CARE AIDE: reports: section, 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 - Family & Social History Family History: Mother: , CAD, Father: , CAD Family History Comment/Other: pt report her mother had hx of afib, her father had hx of dysrhythmia with pacemaker, her brother had afib at age 54 Living arrangement: At home Living Situation: With spouse/s.o., With family Social History Notes: pt denies cigarette smoking, alcohol and drug issue. she is working at [employer] and living at [facility] - POLST Patient has POLST: No POLST Status: Full Code Meds/Allgy - Home Medications Home Medications: Ambulatory Orders Medication Instructions Recorded Confirmed Lisinopril 10 mg PO DAILY 01/31/13 04/22/19 Venlafaxine HCl [Venlafaxine HCl 37.5 mg PO DAILY 04/22/19 04/22/19 ER] - Allergies Allergies/Adverse Reactions: Allergies Allergy/AdvReac Type Severity Reaction Status Date / Time No Known Drug Allergies Allergy Verified 04/22/19 09:23 Review of Systems - Constitutional Constitutional: reports: Fatigue. denies: Fever, Chills, Malaise, Weakness, Poor appetite, Diaphoresis, Night sweats, Weight gain - Eyes Eyes: denies: Pain, Irritation, Amaurosis, Blurred vision, Spots in vision, Field loss, Vision loss, Dipolpia - Ears, Nose & Throat Ears, Nose & Throat: denies: Ear pain, Hearing loss, Hearing aids, Tinnitus, Vertigo, Nasal pain, Nasal discharge, Nosebleeds, Nasal obstruction, Nasal manpreet estion, Postnasal drainage, Dentures, Sore throat, Hoarseness, Mouth lesions, Bleeding gums - Cardiovascular Cariovascular: reports: Palpitations. denies: Irregular heart rate, Chest pain, Edema, Lightheadedness, Syncope, Exertional dyspnea, Decr. exercise tolerance - Respiratory Respiratory: reports: SOB with exertion. denies: Cough, Sputum production, Wheezing, Snoring, Hemoptysis, Orthopnea, SOB at rest, Apnea, Stridor - Gastrointestinal Gastrointestinal: denies: Abdominal pain, Constipation, Diarrhea, Change in bowel habits, Rectal bleeding, Black stools, Bloody stools, Nausea, Vomiting, Bile emesis, Irwin blood emesis, Coffee grounds emesis, Reflux/heartburn, Bloating, Poor appetite - Genitourinary Genitourinary: denies: Dysuria, Frequency, Urgency, Hematuria, Incontinence, Flank pain, Nocturia, Urethral discharge - Musculoskeletal Musculoskeletal: denies: Muscle pain, Back pain, Muscle aches, Stiffness, Limited range of motion, Muscle weakness, Gout, Joint pain - Integumentary Integumentary: denies: Rash, Pruritis, Lesions, Dryness, Lumps, Acne, Pigment changes, Nail changes - Neurological Neurological: denies: General weakness, Focal weakness, Headache, Dizziness, Numbness, Memory problems, Pre-existing deficit, Abnormal gait, Seizures, Incoordination, Slurred speech - Psychiatric Psychiatric: denies: Depression, Anxiety, Suicidal, Delusions, Hallucinations, Homicidal - Endocrine Endocrine: denies: Polyuria, Polydypsia, Polyphagia, Intolerance to cold - Hematologic/Lymphatic Hematologic/Lymphatic: denies: Anemia, Bruising, Petechiae, Blood clots, Lymphadenopathy, Bleeding tendencies Exam - Vital Signs Reviewed Vital Signs: Yes Vital Signs: Vital Signs x48h Temp Pulse Resp BP Pulse Ox 04/22/19 13:30 90 16 122/93 H 98 04/22/19 13:27 88 21 123/82 H 100 04/22/19 13:15 85 14 125/85 H 100 04/22/19 13:06 79 22 125/96 H 04/22/19 12:56 88 24 141/101 H 99 04/22/19 12:30 111 H 19 130/91 H 100 04/22/19 12:00 97 12 113/76 100 04/22/19 11:11 84 18 125/90 H 100 04/22/19 10:22 84 18 114/69 04/22/19 10:10 122 H 18 133/96 H 04/22/19 09:29 140 H 16 147/124 H 100 04/22/19 09:18 35.7 C L 139 H 12 145/113 H 100 - Physical Exam General Appearance: positive: No acute distress, Alert. negative: Lethargic Eyes Bilateral: positive: Normal inspection, PERRL, No lid inflammation, Conjunctivae nml ENT: positive: ENT inspection nml, Pharynx nml, No signs of dehydration. negative: Purulent nasal drainage, Pharyngeal erythema, Oral lesions Neck: positive: Nml inspection, Thyroid nml, No JVD, Trachea midline. negative: Thyromegaly, Lymphadenopathy (R), Lymphadenopathy (L), Stiff neck, Swelling/bruising, Tracheal deviation Respiratory: positive: Chest non-tender, No respiratory distress, Breath sounds nml. negative: Wheezes, Rales, Rhonchi Cardiovascular: positive: Regular rate & rhythm, No murmur, No gallop, Tachycardia. negative: Irregularly irregular, Extrasystoles, Bradycardia, JVD present, Systolic murmur, Diastolic murmur Peripheral Pulses: positive: 2+ Abdomen: positive: Non-tender, No organomegaly, Nml bowel sounds, No distention. negative: Tenderness, Guarding, Rebound Back: positive: Nml inspection. negative: CVA tenderness (R), CVA tenderness (L) Skin: positive: Color nml, No rash, Warm, Dry. negative: Cyanosis, Diaphoresis, Pallor Extremities: positive: Non-tender, Full ROM, Nml appearance. negative: Calf tenderness, Joint swelling, Sanjana's sign/cords Neurologic/Psychiatric: positive: Oriented x3, Motor nml, Sensation nml. negative: Mood/affect nml, Weakness, Sensory loss, Facial droop, Slurred/abnml speech, Depressed mood/affect Sepsis Event Note (H) - Evaluation Current Stage of Sepsis: Ruled out Conclusion/Plan - Problem List (1) Atrial fibrillation with rapid ventricular response Conclusion/Plan: pt present symptomatic afib with HR upto 140 but unknown exact pt started to have Afib. cardiac conversion was not performed. pt has strong family hx of dysrhythmia, special Afib. IV of cardizem and procainamide was ordered by ER. pt declined to start with anticoagulation therapy, she prefer to talk with her wagon driver first although her chadsvasc is 2. Troponin test was negative, pt denies chest pain as well. PO cardizem ER now, PRN metoprolol tele, and vital monitor (2) HTN (hypertension) Conclusion/Plan: stable, reconcile home Lisinopril. vital monitor (3) Anxiety Conclusion/Plan: stable, reconcile of home venlafaxine (4) Full code status Conclusion/Plan: pt request full code - Lab Results Fish Bones: 04/22/19 09:27 04/22/19 09:27 Core Measures - Anticipated LOS I expect patient to be DC'd or transferred within 96 hours.: Yes - DVT/VTE - Prophylaxis VTE/DVT Device ordered at admit?: Yes VTE/DVT Prophylaxis med ordered at admit?: Yes - Stroke - Rehab Assessment Rehab services assessment to be ordered?: Yes - AMI - Statin at Admit Aspirin Prescribed on Admit: Yes
[2019-04-22] MEDS ORDERED: METOPROLOL 5 MG/5 ML VIAL IVP PRN (16:02)
[2019-04-22] MEDS ORDERED: NON FORMULARY MED (Lisinopril [Lisinopril] 10 MG) PO SCH (16:09)
[2019-04-22] MEDS: SODIUM CHLORIDE FLUSH 0.9% 10 ML SYRINGE IVP SCH ×2 (16:12→23:47)
[2019-04-22] MEDS: SODIUM CHLORIDE 0.9% 1,000 ML IV SCH (19:01)
[2019-04-23 05:38] LABS: BASOPHILS % (AUTO) 0.5 %; EOSINOPHILS # (AUTO) 0.1 10^3/uL (0.0-0.7); EOSINOPHILS % (AUTO) 1.9 %; HGB - HEMOGLOBIN 12.1 g/dL (12.0-16.0); LYMPHOCYTES # (AUTO) 1.8 10^3/uL (1.5-3.5); LYMPHOCYTES % (AUTO) 44.4 %; MEAN CORPUSCULAR HEMOGLOBIN 30.4 pg (27.0-31.0); MEAN CORPUSCULAR HGB CONC 32.3 g/dL (32.0-36.0); MEAN CORPUSCULAR VOLUME 94.2 fL (81.0-99.0); MEAN PLATELET VOLUME 11.5 fL (7.9-10.8); MONOCYTES # (AUTO) 0.4 10^3/uL (0.0-1.0); MONOCYTES % (AUTO) 9.7 %; NEUTROPHILS # (AUTO) 1.8 10^3/uL (1.5-6.6); PLT - PLATELET COUNT 143 10^3/uL (130-450); RED BLOOD COUNT 3.98 10^6/uL (4.20-5.40); RED CELL DISTRIBUTION WIDTH 11.8 % (12.0-15.0); WHITE BLOOD COUNT 4.1 x10^3/uL (4.8-10.8)
[2019-04-23 05:47] LABS: CALCIUM 8.5 mg/dL (8.5-10.3)
[2019-04-23] MEDS: SODIUM CHLORIDE 0.9% 1,000 ML IV SCH (07:13)
[2019-04-23 07:42] VITALS: BP 121/87
--- NOTE | 2019-04-23 08:15 | Discharge Plan ---
Discharge Plan Problem Reviewed?: Yes Disposition: Home, Self Care Condition: Stable Prescriptions: diltiaZEM CD [Cardizem Cd] 180 mg PO DAILY #10 capsule Diet: Regular Activity Restrictions: Activity as Tolerated Shower Restrictions: No (fall precaution) Instruction Topics: Diltiazem tablets, Anticoagulants, Atrial Fibrillation Health Concerns: afib with RVR Plan of Treatment: your pause is controlled at normal arrange, but you still have an afib rhythm. Your chadsvasc score is calculated as 2. you declined to have anticoagulation meds now, and prefer to talk with your hatch supervisor first. your ECHO study is unremarkable. please followup your hatch supervisor for further management. Care Goals: stabilization and improvement Assessment: assessment as the above Additional Instructions or Follow Up instructions: you may followup your PCP in one week, followup your hatch supervisor as your schedule on this week . Should your symptoms return or worsen, you may present ER or call 911 for help. Follow-Up Care: [facility] - Cardiac No Smoking: If you smoke, Please STOP! Call for help. Follow-up with: Preeti Duran ARNP, OIL HEAT TECHNICIAN-C [Primary Care Provider] -
--- NOTE | 2019-04-23 08:28 | DISCHARGE SUMMARY ---
Discharge Summary Discharge Date: 04/23/19 Discharging Provider: THOMASON Primary Care Provider: Preeti Rodas Condition at Discharge: Stable Discharge Disposition: 01 Home, Self Care Discharge Facility Name: home - DIAGNOSES Admission Diagnoses: (1) Atrial fibrillation with rapid ventricular response (2) HTN (hypertension) (3) Anxiety Discharge Diagnoses with Status of Each Condition: (1) Atrial fibrillation with rapid ventricular response stable and controlled HR at normal arrange (2) HTN (hypertension) stable (3) Anxiety stable - HPI History of Present Illness: Ms. Medina is a 53-yrs old female with a PMH history of HTN, anxiety, who present ER complain of palpitation, tired and mild shortness of breath. pt report she felt fatigued and slightly short of breath for about one week. she also report slight lightheaded and palpitation. pt report her brother was diagnosis of Afib at 54yrs old. Her mother had hx of Afib, her father had pacemaker. she denies chest pain, pre-syncope or syncope, fever, chill, cough. pt was found to have HR at 140 with afib on ER. ECHO done at ER reveals unremarkable with normal EF. Because of unclear the exact time pt started to have Afib, cardiac conversion was not performed. Pt's CHADSVASC score is 2. Discussion with pt for if starting on anticoagulation, pt state she prefer to talk with her chinchilla machine operator on this week first. pt was given IV of cardizem and IV drop of procainamide, pt's HR is down to about 100. pt report she feel much better after treatment. she denies palpitation or shortness of breath any more. pt is admitted in observation unit for further management. - HOSPITAL COURSE Hospital Course: pt was admitted for her palpitation, tired and mild shortness of breath. pt was found to have Afib with RVR at 140 on ER. pt was given IV of cardizem and procainamide in ER. pt was managed by oral cardizem CD in medical floor. after treatment, pt's HR was controlled at normal arrange around. pt denies any more symptoms. pt still have afib although his HR is controlled. pt's chadsvasc score is calculated as 2. pt declined to have anticoagulation now, prefer to talk with her chinchilla machine operator first, then followup for further management with her chinchilla machine operator. pt had ECHO study in ER, it was unremarkable. pt is prescribed Cardizem CD 180mg daily for afib with RVR pause controlled. the detail hospital course and diagnosis are as the below (1) Atrial fibrillation with rapid ventricular response stable and controlled HR at normal arrange. pt is prescribed cardizem CD for HR control. Followup her chinchilla machine operator for further management (2) HTN (hypertension) stable (3) Anxiety stable - ALLERGIES Allergies/Adverse Reactions: Allergies Allergy/AdvReac Type Severity Reaction Status Date / Time No Known Drug Allergies Allergy Verified 04/22/19 09:23 - MEDICATIONS Home Medications: Ambulatory Orders Medication Instructions Recorded Confirmed Lisinopril 10 mg PO DAILY 01/31/13 04/22/19 Venlafaxine HCl [Venlafaxine HCl 37.5 mg PO DAILY 04/22/19 04/22/19 ER] diltiaZEM CD [Cardizem Cd] 180 mg PO DAILY #10 capsule 04/23/19 - PHYSICAL EXAM AT DISCHARGE General Appearance: positive: No acute distress, Alert. negative: Lethargic Eyes Bilateral: positive: Normal inspection, PERRL. negative: No lid inflammation, Conjunctivae nml ENT: positive: ENT inspection nml, Pharynx nml, No signs of dehydration. negative: Purulent nasal drainage, Pharyngeal erythema, Oral lesions Neck: positive: Nml inspection, Thyroid nml, No JVD, Trachea midline. negative: Thyromegaly, Lymphadenopathy (R), Lymphadenopathy (L), Stiff neck, Swelling/bruising, Tracheal deviation Respiratory: positive: Chest non-tender, No respiratory distress, Breath sounds nml. negative: Wheezes, Rales, Rhonchi Cardiovascular: positive: Regular rate & rhythm, No murmur, No gallop. negative: Irregularly irregular, Extrasystoles, Tachycardia, Bradycardia, JVD present, Systolic murmur, Diastolic murmur Peripheral Pulses: positive: 2+ Abdomen: positive: Non-tender, No organomegaly, Nml bowel sounds, No distention. negative: Tenderness, Guarding, Rebound Back: positive: Nml inspection. negative: CVA tenderness (R), CVA tenderness (L) Skin: positive: Color nml, No rash, Warm, Dry. negative: Cyanosis, Diaphoresis, Pallor Extremities: positive: Non-tender, Full ROM, Nml appearance. negative: Calf tenderness, Joint swelling, Sanjana's sign/cords Neurologic/Psychiatric: positive: Oriented x3, Motor nml, Sensation nml, Mood/affect nml. negative: Weakness, Sensory loss, Facial droop, Slurred/abnml speech, Depressed mood/affect - LABS Result Diagrams: 04/23/19 05:11 04/23/19 05:11 - SEPSIS Current Stage of Sepsis: Ruled out - FOLLOW UP Follow Up: your pause is controlled at normal arrange, but you still have an afib rhythm. Your chadsvasc score is calculated as 2. you declined to have anticoagulation meds now, and prefer to talk with your chinchilla machine operator first. your ECHO study is unremarkable. please followup your chinchilla machine operator for further management. you may followup your PCP in one week, followup your chinchilla machine operator as your schedule on this week . Should your symptoms return or worsen, you may present ER or call 911 for help. - TIME SPENT Time Spent in Discharge (Minutes): 50
[2019-04-23] MEDS ORDERED: POLYETHYLENE GLYCOL 3350 17 GM PACKET PO SCH (09:00)
[2019-04-23] MEDS ORDERED: VENLAFAXINE ER 37.5 MG CAPSULE PO SCH (09:00)
[2019-04-23] MEDS ORDERED: LISINOPRIL 5 MG TABLET PO SCH ×2 (09:00)
[2019-04-23] MEDS: SODIUM CHLORIDE FLUSH 0.9% 10 ML SYRINGE IVP SCH (09:17)
== END 2019-04-23 10:05 | disposition home or self-care (01) ==
LOC: ED 09:13 → MS2 13:51
PROVIDERS: ADMIT Specialist; ATTEND Nurse Practitioner Gerontology
DX: I48.91 Unspecified atrial fibrillation (principal); I10 Essential (primary) hypertension; F41.9 Anxiety disorder, unspecified; Z82.49 Family history of ischemic heart disease and other diseases of the circulatory system
CPT/HCPCS: 36415; 71045; 80048; 83690; 83735; 83880; 84484; 85025; 93005; 93306; 96361; 96365; 96366; 96375; 96376; 99284; 99285; A9270; G0378; J2690; 80053; 84443

== ENCOUNTER 2019-05-29 15:57 | Emergency (ER) | payer BC ==
--- NOTE | 2019-05-29 16:08 | ED Physician Documentation ---
PD HPI ABD PAIN - Stated complaint Stated Complaint: rectal pressure - Chief complaint Chief Complaint: Abd Pain - History obtained from History obtained from: Patient - History of Present Illness Timing - onset: Today (She is unable to have a bowel movement today and has a lot of rectal pressure. Subsequent he had a panic attack. Still cannot poop. No abdominal pain or nausea.) Review of Systems Constitutional: denies: Fever, Chills, Myalgias Cardiac: denies: Chest pain / pressure, Palpitations Respiratory: denies: Dyspnea PD PAST MEDICAL HISTORY - Past Medical History Cardiovascular: Hypertension Respiratory: None Neuro: None GI: None, Colon polyps : None HEENT: None Psych: Anxiety Musculoskeletal: Other Derm: None - Past Surgical History Past Surgical History: Yes General: Appendectomy, Colonoscopy Ortho: Other /DOT NET ARCHITECT: section, 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 - Present Medications Home Medications: Ambulatory Orders Medication Instructions Recorded Confirmed Lisinopril 10 mg PO DAILY 01/31/13 05/29/19 Venlafaxine HCl [Venlafaxine HCl 37.5 mg PO DAILY 04/22/19 05/29/19 ER] diltiaZEM CD [Cardizem Cd] 180 mg PO DAILY #10 capsule 04/23/19 05/29/19 - Allergies Allergies/Adverse Reactions: Allergies Allergy/AdvReac Type Severity Reaction Status Date / Time No Known Drug Allergies Allergy Verified 05/29/19 16:02 - Social History Does the pt smoke?: No Smoking Status: Never smoker Does the pt drink ETOH?: Yes Does the pt have substance abuse?: No - Immunizations Immunizations are current?: Yes - POLST Patient has POLST: No POLST Status: Full Code PD ED PE NORMAL - Vitals Vital signs reviewed: Yes - General General: Alert and oriented X 3, No acute distress - Abdomen Abdomen: Normal bowel sounds, Soft, Non tender - Rectal Rectal: Other (Large firm fecal impaction. Partially disimpacted and an enema was placed during examination.) - Neuro Neuro: Alert and oriented X 3, Normal speech - Psych Psych: Normal mood, Normal affect Results - Vitals Vitals: Vital Signs - 24 hr 05/29/19 15:58 Heart Rate 95 Respiratory 20 Rate Blood Pressure 138/125 H O2 Saturation 100 Oxygen O2 Source Room air PD MEDICAL DECISION MAKING - ED course ED course: After a combination of manual disimpaction and an enema she had a very large bowel movement with resolution of her symptoms. Departure - Departure Disposition: 01 Home, Self Care Clinical Impression: Fecal impaction Condition: Good Record reviewed to determine appropriate education?: Yes Instructions: ED Impaction Fecal Treated Comments: Take a stool softener or laxative tonight keep everything moving and drink plenty fluids. Return for new or worsening symptoms.
[2019-05-29 16:29] VITALS: BP 130/76
== END 2019-05-29 16:32 | disposition home or self-care (01) ==
LOC: ED 15:57
DX: K56.41 Fecal impaction (principal); I10 Essential (primary) hypertension
CPT/HCPCS: 99283; 99284

== ENCOUNTER 2019-08-28 14:26 | Emergency (ER) | payer BC ==
[2019-08-28] MEDS ORDERED: diltiaZEM INJ 5 MG/ML VIAL ONE (14:47)
[2019-08-28] MEDS ORDERED: diltiaZEM INJ 5 MG/ML VIAL IVP STA ×2 (14:52→15:41)
--- NOTE | 2019-08-28 14:53 | ED Physician Documentation ---
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 She went to 1 of the nurses and asked him to check her heart rate and sure enough she felt like it was very fast so she presents here for evaluation. Patient had an episode of A. fib with RVR about 2 months ago and was admitted on Cardizem. She followed up with a textile science technician at [facility] who recommended she stay on the Cardizem for a week or 2 and then just keep it in her pocket in the event that her heart rate sped up again. She has not had any further problems since that time. She denies use of any blood thinners. She does take an aspirin a day. Denies chest pain or shortness of breath. She feels dizzy. No nausea or vomiting. Review of Systems Unable to obtain: Other (Rapid heart rate) Constitutional: denies: Fever Cardiac: reports: Palpitations. denies: Chest pain / pressure Respiratory: denies: Dyspnea, Cough GI: denies: Nausea, Vomiting Neurologic: reports: Other (Feels dizzy) PD PAST MEDICAL HISTORY - Past Medical History Cardiovascular: Hypertension Respiratory: None Neuro: None GI: None, Colon polyps : None HEENT: None Psych: Anxiety Musculoskeletal: Other Derm: None - Past Surgical History Past Surgical History: Yes General: Appendectomy, Colonoscopy Ortho: Other /SOLAR SYSTEM INSTALLER: section, 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 - Present Medications Home Medications: Ambulatory Orders Medication Instructions Recorded Confirmed Lisinopril 10 mg PO DAILY 01/31/13 05/29/19 Venlafaxine HCl [Venlafaxine HCl 37.5 mg PO DAILY 04/22/19 05/29/19 ER] diltiaZEM CD [Cardizem Cd] 180 mg PO DAILY #10 capsule 04/23/19 05/29/19 - Allergies Allergies/Adverse Reactions: Allergies Allergy/AdvReac Type Severity Reaction Status Date / Time No Known Drug Allergies Allergy Verified 08/28/19 14:28 - Social History Does the pt smoke?: No Smoking Status: Never smoker Does the pt drink ETOH?: Yes Does the pt have substance abuse?: No - Immunizations Immunizations are current?: Yes - POLST Patient has POLST: No POLST Status: Full Code PD ED PE NORMAL - Vitals Vital signs reviewed: Yes - General General: Alert and oriented X 3, No acute distress, Well developed/nourished - HEENT HEENT: Atraumatic, PERRL, EOMI, Moist mucous membranes - Neck Neck: Supple, no meningeal sign, No adenopathy, Thyroid normal - Cardiac Cardiac: No murmur, Strong equal pulses, Other (Tachycardia) - Respiratory Respiratory: No respiratory distress, Clear bilaterally - Abdomen Abdomen: Normal bowel sounds, Soft, No organomegaly - Derm Derm: Normal color, Warm and dry, No rash - Extremities Extremities: No edema - Neuro Neuro: Alert and oriented X 3 - Psych Psych: Normal mood, Normal affect Results - Vitals Vitals: Vital Signs - 24 hr 08/28/19 08/28/19 08/28/19 14:28 14:59 15:14 Temperature 36.5 C Heart Rate 157 H 83 108 H Respiratory 14 17 16 Rate Blood Pressure 120/83 H 117/94 H 131/84 H O2 Saturation 100 100 100 08/28/19 08/28/19 08/28/19 16:02 16:46 17:05 Temperature Heart Rate 115 H 125 H 117 H Respiratory 14 19 11 L Rate Blood Pressure 121/73 122/82 H 124/54 L O2 Saturation 97 95 96 08/28/19 08/28/19 18:31 18:48 Temperature Heart Rate 121 H 131 H Respiratory 17 16 Rate Blood Pressure 154/113 H 151/88 H O2 Saturation 99 99 Oxygen O2 Source Room air - EKG (time done) 1436 Rate: Rate (enter#) (152), Tachy Rhythm: Atrial fibrillation Intervals: No: Wide QRS Ischemia: Non specific changes 1900 Rate: Rate (enter#) (74) Rhythm: Atrial fibrillation Intervals: Normal ID Ischemia: Normal ST segments, T wave inversion (III) Compare to prior EKG: Changed from prior EKG (Patient has been converted to a sinus rhythm.) - Labs Labs: Laboratory Tests 08/28/19 08/28/19 08/28/19 14:50 14:50 14:50 WBC 5.3 RBC 4.53 Hgb 14.2 Hct 41.5 MCV 91.6 MCH 31.3 H MCHC 34.2 RDW 11.7 L Plt Count 182 MPV 11.4 H Neut # (Auto) 3.2 Lymph # (Auto) 1.6 Nuckolls # (Auto) 0.5 Eos # (Auto) 0.1 Baso # (Auto) 0.0 Absolute Nucleated RBC 0.00 Nucleated RBC % 0.0 Sodium 135 Potassium 3.3 L Chloride 97 L Carbon Dioxide 25 Anion Gap 13.0 BUN 19 Creatinine 1.1 H Estimated GFR (MDRD) 52 L Glucose 179 H Calcium 9.7 Total Bilirubin 0.9 AST 30 ALT 24 Alkaline Phosphatase 60 Troponin I High Sens 3.4 Total Protein 8.1 Albumin 4.9 Globulin 3.2 Albumin/Globulin Ratio 1.5 Lipase 65 H Procedures - Procedural sedation Sedation prep: Informed consent, Last meal (6 hours), PE performed, AHA 1 - healthy, IV O2 monitor, ET CO2 monitor, RT present Sedation medications: propofol Patient status during sedation: Alert Sedation recovery: Recovered uneventfully Time in sedation (Minutes): 5 - Cardioversion Attempt 1 Time of attempt: 18:55 Indication: Tachyarrhythmia Risks, benefits, alternatives explained to: Pt Prep: IV, O2, hall monitor, Pulse ox, Airway equip Meds: Propofol CS via: Anterolateral Sync: 150j Post cardioversion rhythm: NSR Complications: No: Apnea, Hypotension Performed by: ED MD MEDICAL DECISION MAKING - ED course Complexity details: re-evaluated patient, d/w patient, d/w family ED course: Patient had an IV started and she was given 20 mg of Cardizem IV. Her heart rate did come down but not below 100. She was redosed with 10 mg and started on a 5 mg/h drip. We discussed cardioversion but she had eaten just 45 minutes prior to arrival in the emergency department so elected not to do it initially. After discussion with the hospitalist about admitting her we decided to give her 60 mg of Cardizem p.o. and pain [place] IV to see if that would get her converted. It did not and by that time she was about 6 hours after her meal and she consented for conscious sedation with cardioversion. She converted with 1 attempt at 150 J. She tolerated it wellAlthough the sedation was not quite as deep as I would have hoped for. She was offered pain medications which she declined. Plan for discharge pending review of a repeat EKG. Departure - Departure Disposition: 01 Home, Self Care Clinical Impression: Atrial fibrillation with rapid ventricular response Condition: Good Instructions: ED Afib Follow-Up: Preeti Duran ARNP, DRY CLEANING MANAGER-C [Primary Care Provider] - Comments: You should contact the textile science technician about whether or not you should restart your Cardizem on a long-term basis. We have he converted tonight back to a sinus rhythm. I would avoid any diets in the future that could allow you to develop ketosis.
[2019-08-28 14:55] LABS: BASOPHILS % (AUTO) 0.6 %; EOSINOPHILS # (AUTO) 0.1 10^3/uL (0.0-0.7); EOSINOPHILS % (AUTO) 1.1 %; HGB - HEMOGLOBIN 14.2 g/dL (12.0-16.0); LYMPHOCYTES # (AUTO) 1.6 10^3/uL (1.5-3.5); LYMPHOCYTES % (AUTO) 29.2 %; MEAN CORPUSCULAR HEMOGLOBIN 31.3 pg (27.0-31.0); MEAN CORPUSCULAR HGB CONC 34.2 g/dL (32.0-36.0); MEAN CORPUSCULAR VOLUME 91.6 fL (81.0-99.0); MEAN PLATELET VOLUME 11.4 fL (7.9-10.8); MONOCYTES # (AUTO) 0.5 10^3/uL (0.0-1.0); MONOCYTES % (AUTO) 9.2 %; NEUTROPHILS # (AUTO) 3.2 10^3/uL (1.5-6.6); NEUTROPHILS % (AUTO) 59.7 %; PLT - PLATELET COUNT 182 10^3/uL (130-450); RED BLOOD COUNT 4.53 10^6/uL (4.20-5.40); RED CELL DISTRIBUTION WIDTH 11.7 % (12.0-15.0); WHITE BLOOD COUNT 5.3 x10^3/uL (4.8-10.8)
[2019-08-28 15:12] LABS: ALBUMIN 4.9 g/dL (3.2-5.5); ALBUMIN/GLOBULIN RATIO 1.5 (1.0-2.2); BILIRUBIN,TOTAL 0.9 mg/dL (0.2-1.0); CALCIUM 9.7 mg/dL (8.5-10.3); CREATININE 1.1 mg/dL (0.4-1.0); TOTAL PROTEIN 8.1 g/dL (6.7-8.2)
--- NOTE | 2019-08-28 15:22 | XRAY Report ---
Reason: CHEST PAIN Procedure Date: 08/28/2019 Accession Number: [id number] / [id number] Procedure: XR - Chest 2 View X-Ray CPT Code: 03296 Final Report FULL RESULT: EXAM: CHEST RADIOGRAPHY EXAM DATE: 08/28/2019 03:13 PM. CLINICAL HISTORY: CHEST PAIN. COMPARISON: CHEST 1 VIEW 04/22/2019 9:35 AM. TECHNIQUE: 2 views. FINDINGS: Lungs/Pleura: Clear. No effusion or pneumothorax. Mediastinum: Heart and mediastinal contours are unremarkable. Upper lobe vessels not distended. Other: None. IMPRESSION: No acute disease. RADIA
[2019-08-28] MEDS ORDERED: diltiaZEM INJ 125 MG in DEXTROSE 5% 100 ML IV STA (15:41)
[2019-08-28] MEDS ORDERED: POTASSIUM CHLORIDE 20 MEQ TABLET PO STA (15:56)
[2019-08-28] MEDS ORDERED: diltiaZEM 30 MG TABLET PO STA (16:31)
[2019-08-28] MEDS ORDERED: PROCAINAMIDE 1,000 MG in SODIUM CHLORIDE 0.9% 240 ML IV ONE (17:00)
[2019-08-28] MEDS ORDERED: PROPOFOL 200 MG/20 ML VIAL IVP ONE (18:29)
[2019-08-28 19:06] VITALS: BP 144/96
[2019-08-28] MEDS ORDERED: PROPOFOL 200 MG/20 ML VIAL IVP STA (19:10)
[2019-08-28] MEDS ORDERED: PROPRANOLOL 1 MG/ML VIAL IVP ONE (19:10)
== END 2019-08-28 19:30 | disposition home or self-care (01) ==
LOC: ED 14:26
DX: I48.91 Unspecified atrial fibrillation (principal); I10 Essential (primary) hypertension; Z79.82 Long term (current) use of aspirin
CPT/HCPCS: 36415; 71046; 80053; 83690; 84484; 85025; 92960; 93005; 96365; 96375; 96376; 99284; 99285; A9270; J2690; 94770

== ENCOUNTER 2019-11-18 11:04 | Emergency (ER) | payer BC ==
[2019-11-18 11:45] LABS: BASOPHILS % (AUTO) 0.4 %; EOSINOPHILS # (AUTO) 0.1 10^3/uL (0.0-0.7); EOSINOPHILS % (AUTO) 1.8 %; HGB - HEMOGLOBIN 13.6 g/dL (12.0-16.0); LYMPHOCYTES # (AUTO) 1.4 10^3/uL (1.5-3.5); LYMPHOCYTES % (AUTO) 26.5 %; MEAN CORPUSCULAR HEMOGLOBIN 30.4 pg (27.0-31.0); MEAN PLATELET VOLUME 10.6 fL (7.9-10.8); MONOCYTES # (AUTO) 0.5 10^3/uL (0.0-1.0); NEUTROPHILS # (AUTO) 3.4 10^3/uL (1.5-6.6); NEUTROPHILS % (AUTO) 61.9 %; PLT - PLATELET COUNT 194 10^3/uL (130-450); RED BLOOD COUNT 4.48 10^6/uL (4.20-5.40); RED CELL DISTRIBUTION WIDTH 12.2 % (12.0-15.0); WHITE BLOOD COUNT 5.4 x10^3/uL (4.8-10.8)
[2019-11-18 11:56] LABS: ALBUMIN 4.6 g/dL (3.2-5.5); ALBUMIN/GLOBULIN RATIO 1.3 (1.0-2.2); BILIRUBIN,TOTAL 1.1 mg/dL (0.2-1.0); CALCIUM 9.3 mg/dL (8.5-10.3); CREATININE 0.8 mg/dL (0.4-1.0); TOTAL PROTEIN 8.1 g/dL (6.7-8.2)
[2019-11-18] MEDS ORDERED: LORazepam 2 MG/ML VIAL IVP STA (12:10)
[2019-11-18] MEDS ORDERED: HYDROmorphone 1 MG/ML CARPUJECT IVP STA (12:10)
--- NOTE | 2019-11-18 12:12 | ED Physician Documentation ---
PD HPI ABD PAIN - Stated complaint Stated Complaint: HERNIA PX - Chief complaint Chief Complaint: Abd Pain - History obtained from History obtained from: Patient (This is a 54-year-old woman with history of laparoscopic appendectomy and hysterectomy. She is always had a umbilical hernia. It is been sensitive but never really bothered her. She had some brief pains over the last week or 2 but became more painful this morning and more dist ended this morning. No associated trouble with bowel movements or nausea/vomiting.) Review of Systems Constitutional: denies: Fever, Chills Cardiac: denies: Chest pain / pressure, Palpitations Respiratory: denies: Dyspnea, Cough GI: reports: Abdominal Pain, Nausea, Vomiting. 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 - Present Medications Home Medications: Ambulatory Orders Medication Instructions Recorded Confirmed Lisinopril 10 mg PO DAILY 01/31/13 05/29/19 Venlafaxine HCl [Venlafaxine HCl 37.5 mg PO DAILY 04/22/19 05/29/19 ER] diltiaZEM CD [Cardizem Cd] 180 mg PO DAILY #10 capsule 04/23/19 05/29/19 - Allergies Allergies/Adverse Reactions: Allergies Allergy/AdvReac Type Severity Reaction Status Date / Time No Known Drug Allergies Allergy Verified 11/18/19 11:16 - Social History Does the pt smoke?: No Smoking Status: Never smoker Does the pt drink ETOH?: Yes Does the pt have substance abuse?: No - Immunizations Immunizations are current?: Yes - POLST Patient has POLST: No POLST Status: Full Code PD ED PE NORMAL - Vitals Vital signs reviewed: Yes - General General: Alert and oriented X 3, No acute distress - Abdomen Abdomen: Normal bowel sounds, Soft, Other (She is a very small but incarcerated umbilical hernia. I am able to partially reduce it on initial evaluation but she will need some more medication to get it all the way in.) - Neuro Neuro: Alert and oriented X 3, Normal speech Results - Vitals Vitals: Vital Signs - 24 hr 11/18/19 11:16 Temperature 36.9 C Heart Rate 66 Respiratory 17 Rate Blood Pressure 150/89 H O2 Saturation 100 Oxygen O2 Source Room air - Labs Labs: Laboratory Tests 11/18/19 11/18/19 11:25 11:25 WBC 5.4 RBC 4.48 Hgb 13.6 Hct 41.2 MCV 92.0 MCH 30.4 MCHC 33.0 RDW 12.2 Plt Count 194 MPV 10.6 Neut # (Auto) 3.4 Lymph # (Auto) 1.4 L [place] # (Auto) 0.5 Eos # (Auto) 0.1 Baso # (Auto) 0.0 Absolute Nucleated RBC 0.00 Nucleated RBC % 0.0 Sodium 135 Potassium 3.9 Chloride 98 L Carbon Dioxide 27 Anion Gap 10.0 BUN 16 Creatinine 0.8 Estimated GFR (MDRD) 75 L Glucose 96 Calcium 9.3 Total Bilirubin 1.1 H AST 31 ALT 23 Alkaline Phosphatase 76 Total Protein 8.1 Albumin 4.6 Globulin 3.5 Albumin/Globulin Ratio 1.3 Lipase 44 PD MEDICAL DECISION MAKING - ED course ED course: 54-year-old woman with incarcerated small umbilical hernia. After the administration of a small dose of Dilaudid and Ativan I was able to reduce it. Discussed the need for follow-up and signs and symptoms to return for. Also limitation in activity to prevent recurrence. Departure - Departure Disposition: 01 Home, Self Care Clinical Impression: Umbilical hernia Qualifiers: Obstruction and gangrene presence: without obstruction or gangrene Qualified Code(s): K42.9 - Umbilical hernia without obstruction or gangrene Condition: Good Record reviewed to determine appropriate education?: Yes Instructions: ED Hernia Inguinal Follow-Up: DUSTIN RAMON MD [Physician No Access] - Comments: Return if it comes out again and you can't gently press it back in. Follow-up with the surgeon as soon as possible.
[2019-11-18 12:33] VITALS: BP 145/84
== END 2019-11-18 13:29 | disposition home or self-care (01) ==
LOC: ED 11:04
DX: K42.9 Umbilical hernia without obstruction or gangrene (principal); I10 Essential (primary) hypertension; I48.91 Unspecified atrial fibrillation; F41.9 Anxiety disorder, unspecified
CPT/HCPCS: 36415; 80053; 83690; 85025; 96374; 96375; 99283; J1170; J2060

== ENCOUNTER 2020-01-28 12:34 | Outpatient (CLI) | payer BC | END 2020-01-28 12:35 | disposition home or self-care (01) | LOC: LAB 12:34 | PROVIDERS: ATTEND Surgery | DX: Z01.812 Encounter for preprocedural laboratory examination (principal); Z20.828 Contact with and (suspected) exposure to other viral communicable diseases; K43.2 Incisional hernia without obstruction or gangrene | CPT/HCPCS: 81599 ==

== ENCOUNTER 2020-01-31 07:58 | Day surgery (SDC) | payer BC ==
[~2020-01-31 07:58] MED LIST changes: +CEFAZOLIN SODIUM IN 0.9 % NACL 2 GM/100 ML BAG IV ONE; -LACTATED RINGERS 1,000 ML IV ONE
[2020-01-31] MEDS ORDERED: fentaNYL 100 MCG/2 ML VIAL IVP ONE (07:59)
[2020-01-31] MEDS ORDERED: DEXAMETHASONE 4 MG/ML VIAL IVP ONE (07:59)
[2020-01-31] MEDS ORDERED: ONDANSETRON 4 MG/2 ML VIAL IVP ONE (07:59)
[2020-01-31] MEDS ORDERED: MIDAZOLAM 2 MG/2 ML VIAL IVP ONE (07:59)
[2020-01-31] MEDS ORDERED: PROPOFOL 200 MG/20 ML VIAL IVP ONE (07:59)
[2020-01-31] MEDS ORDERED: KETOROLAC 30 MG/ML VIAL IVP ONE (07:59)
[2020-01-31] MEDS ORDERED: KETAMINE 500 MG/10 ML VIAL IVP ONE (07:59)
[2020-01-31] MEDS ORDERED: ROCURONIUM 50 MG/5 ML VIAL IVP ONE (07:59)
[2020-01-31] MEDS ORDERED: ACETAMINOPHEN 1,000 MG/100 ML 100 ML IV ONE (07:59)
[2020-01-31] MEDS ORDERED: LIDOCAINE-MPF 2% 5 ML VIAL IM ONE (07:59)
[2020-01-31] MEDS ORDERED: LACTATED RINGERS 1,000 ML IV ONE ×2 (08:40→11:19)
[2020-01-31] MEDS ORDERED: SCOPOLAMINE PATCH TOP ONE (08:42)
--- NOTE | 2020-01-31 08:42 | ANESTHESIA ---
Pre-Anesthesia VS, & Labs - Diagnosis incisional hernia - Procedure incisional hernia repair with mesh Vital Signs: Temp Pulse Resp BP Pulse Ox 36.6 C 74 18 152/96 H 99 01/31/20 08:32 01/31/20 08:32 01/31/20 08:32 01/31/20 08:32 01/31/20 08:32 Height 5 ft 9 in Weight (kg) 87 kg Body Mass Index 28.3 - NPO >8 hours - Is Patient ?: No - Lab Results Lab results reviewed: Yes Home Medications and Allergies Home Medications: Ambulatory Orders Multivitamin 1 each PO DAILY 01/23/20 Lisinopril 10 mg PO DAILY 01/31/13 Venlafaxine HCl [Venlafaxine HCl ER] 37.5 mg PO DAILY 04/22/19 Multivitamin 1 each PO DAILY 01/23/20 Allergies/Adverse Reactions: Allergies Allergy/AdvReac Type Severity Reaction Status Date / Time Opioids - Morphine Analogues AdvReac Nausea Verified 01/23/20 16:41 Anes History & Medical History - Anesthetic History Anesthesia Complications: reports: Post-Operative Nausea/Vomiting, Opioid sensitivity Family history of Anesthesia Complications: Denies Family history of Malignant Hyperthermia: Denies - Medical History Cardiovascular: reports: Hypertension, Atrial fibrillation Pulmonary: reports: None Gastrointestinal: reports: Colon polyps Urinary: reports: None Neuro: reports: None, Other (motion sickness) Musculoskeletal: reports: None Endocrine/Autoimmune: reports: None Blood Disorders: reports: None Skin: reports: Eczema Smoking Status: Never smoker - Surgical History General: Appendectomy, Colonoscopy Gynecologic: section, 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 Orthopedic: Other Exam General: Alert, Oriented x3, Cooperative Dental: WNL Mouth Opening: Greater than 4 Fingerbreadths Neck Mobility: Normal Mallampati classification: II Thyromental Distance: 4-6 cm Respiratory: Lungs clear Cardiovascular: Regular rate Plan Anesthesia Type: General Consent for Procedure(s) Verified and Reviewed: Yes Code Status: Attempt Resuscitation ASA classification: 2-Mild systemic disease Is this case an emergency?: No
[2020-01-31] MEDS ORDERED: SCOPOLAMINE PATCH TOP SCH (09:00)
[2020-01-31] MEDS ORDERED: LIDOCAINE 1%-EPI 1:100000 20 ML MDV ONE (09:34)
[2020-01-31] MEDS ORDERED: BUPIVACAINE 0.25% PF 30 ML VIAL ONE ×3 (09:34→10:29)
[2020-01-31] MEDS ORDERED: LIDOCAINE-MPF 1% 30 ML VIAL SUBQ ONE ×2 (10:03→10:09)
[2020-01-31] MEDS ORDERED: BUPIVACAINE 0.25% PF 30 ML VIAL SUBQ ONE ×2 (10:03→10:08)
[2020-01-31] MEDS ORDERED: ONDANSETRON 4 MG/2 ML VIAL IVP PRN (11:22)
[2020-01-31 12:01] VITALS: BP 144/97
--- NOTE | 2020-02-01 12:23 | OPERATIVE REPORT ---
DATE OF SERVICE: 01/31/2020 Physician: Philip Cuevas MD PREOPERATIVE DIAGNOSIS: Incisional hernia. POSTOPERATIVE DIAGNOSIS: Incisional hernia. PROCEDURE PERFORMED 1. Open incisional hernia repair with mesh. 2. Preperitoneal dissection for mesh placement. SURGEON: Philip Cuevas MD QA TESTER: None. ANESTHESIA 1. General endotracheal anesthesia. 2. Local anesthesia with Marcaine. ESTIMATED BLOOD LOSS: None. COMPLICATIONS: None. DRAINS: None. Prosthetic 1.5 inch wide caudad by 2.5 inch wide cephalad by 3 inch tall polypropylene mesh placed preperitoneal. FINDINGS: A 3 cm periumbilical hernia with significant diastasis cephalad. INDICATIONS FOR PROCEDURE: The patient is a 54-year-old with history of umbilical hernia. She also has history of laparoscopic appendectomy and trocar placement near the hernia defect, followed by closure of the hernia defect. She has developed a symptomatic periumbilical hernia with more tenderness cephalad. DETAILS OF PROCEDURE: The patient was properly identified, brought to the operating room and placed in supine position. General endotracheal anesthesia was induced. Sequential compression devices were placed. She was prepped and draped in a sterile fashion and given preoperative antibiotics. She had a prior curvilinear infraumbilical incision. A 3 cm incision was made vertical cephalad of the umbilicus and extended left lateral of the umbilicus down to the prior incision. Dissection proceeded with cutting current cautery or sharp dissection. The umbilical skin was excised away from the hernia sac and scar tissue. Subcutaneous tissue was mobilized back from the fascial defect edge by approximately 3 cm in all directions. The peritoneum and hernia sac was carefully released from the fascia with cutting current cautery. The preperitoneal space was largely developed bluntly. She had a very significant diastasis cephalad with the fascia perhaps 0.5 mm. The fascia cephalad was imbricated with several interrupted 0 Ethibond sutures. A polypropylene mesh as above was placed preperitoneal and secured with a double row of multiple interrupted 0 Ethibond sutures. The fascia was further closed over the mesh leaving an approximately 5 mm fascia defect. The fascia was not closed completely over the mesh due to tension. Subcutaneous tissue was closed with interrupted 2-0 Vicryl suture. The umbilical skin was tacked back down to the fascia with interrupted 2-0 Vicryl suture. Buried interrupted subdermal 3-0 Vicryl sutures were then placed. Skin was closed with a running 4-0 Monocryl subcuticular suture. Dressing was applied. She tolerated the procedure well. TD: 02/01/2020 11:23 MTDD
== END 2020-01-31 07:59 | disposition home or self-care (01) ==
LOC: SDS 07:58
PROVIDERS: ATTEND Surgery
PROC: 0WUF0JZ Supplement Abdominal Wall with Synthetic Substitute, Open Approach (ICD-10-PCS; 2020-01-31)
PROC: 0WQF0ZZ Repair Abdominal Wall, Open Approach (ICD-10-PCS; principal; 2020-01-31 09:15)
DX: K43.2 Incisional hernia without obstruction or gangrene (principal); I10 Essential (primary) hypertension; I48.91 Unspecified atrial fibrillation; M62.08 Separation of muscle (nontraumatic), other site
CPT/HCPCS: 49560; 49568; C1781; J0131; J0690; J3490; J7120

== ENCOUNTER 2020-04-16 08:50 | Outpatient (CLI) | payer BC ==
--- NOTE | 2020-04-16 12:11 | Mammography Report ---
BILATERAL DIGITAL SCREENING MAMMOGRAM 3D/2D: 04/16/2020 CLINICAL: Routine screening. Comparison is made to exams dated: 08/29/2018 mammogram, 08/24/2017 mammogram, 06/09/2016 mammogram, mammogram, 07/20/2015 mammogram, and 03/12/2014 mammogram - [facility]. Ther e are scattered fibroglandular elements in both breasts. No significant masses, calcifications, or other findings are seen in either breast. There has been no significant interval change. IMPRESSION: NEGATIVE There is no mammographic evidence of malignancy. A 1 year screening mammogram is recommended. This exam was interpreted at Station ID: [id number]. NOTE: For mammograms, a report in lay terms will be sent to the patient. Approximately 15% of breast malignancies will not be visualized mammographically. In the management of a palpable breast mass, a negative mammogram must not discourage biopsy of a clinically suspicious lesion. Electronically Signed By: Galindo cunningham/rickie:04/16/2020 10:42:55 ACR BI-RADS Category 1: Negative 3341F PARENCHYMAL PATTERN: (A) - The breast(s) demonstrate(s) scattered fibroglandular densities. BI-RADS CATEGORY: (1) - 1 RECOMMENDATION: (ANNUAL) - Recommend routine annual screening mammography. [id number] 1 year screening LATERALITY: (B)
== END 2020-04-16 08:51 | disposition home or self-care (01) ==
LOC: DI 08:50
PROVIDERS: ATTEND Nurse Practitioner
DX: Z12.31 Encounter for screening mammogram for malignant neoplasm of breast (principal)
CPT/HCPCS: 77063; 77067

== ENCOUNTER 2020-05-11 08:53 | Outpatient (CLI) | payer BC | END 2020-05-11 08:54 | disposition home or self-care (01) | LOC: COV 08:53 | PROVIDERS: ATTEND Family Medicine | DX: Z20.828 Contact with and (suspected) exposure to other viral communicable diseases (principal) ==

== ENCOUNTER 2021-09-20 07:54 | Outpatient (CLI) | payer BC ==
[2021-09-20 08:10] LABS: BASOPHILS % (AUTO) 0.6 %; EOSINOPHILS # (AUTO) 0.1 10^3/uL (0.0-0.7); EOSINOPHILS % (AUTO) 2.1 %; HCT - HEMATOCRIT 40.4 % (37.0-47.0); HGB - HEMOGLOBIN 13.9 g/dL (12.0-16.0); LYMPHOCYTES # (AUTO) 1.6 10^3/uL (1.5-3.5); LYMPHOCYTES % (AUTO) 33.9 %; MEAN CORPUSCULAR HEMOGLOBIN 31.9 pg (27.0-31.0); MEAN CORPUSCULAR HGB CONC 34.4 g/dL (32.0-36.0); MEAN CORPUSCULAR VOLUME 92.7 fL (81.0-99.0); MEAN PLATELET VOLUME 9.9 fL (7.9-10.8); MONOCYTES # (AUTO) 0.4 10^3/uL (0.0-1.0); MONOCYTES % (AUTO) 7.9 %; NEUTROPHILS # (AUTO) 2.6 10^3/uL (1.5-6.6); NEUTROPHILS % (AUTO) 55.3 %; PLT - PLATELET COUNT 205 10^3/uL (130-450); RED BLOOD COUNT 4.36 10^6/uL (4.20-5.40); RED CELL DISTRIBUTION WIDTH 11.7 % (12.0-15.0); WHITE BLOOD COUNT 4.7 x10^3/uL (4.8-10.8)
[2021-09-20 08:30] LABS: ALBUMIN 4.5 g/dL (3.2-5.5); ALBUMIN/GLOBULIN RATIO 1.3 (1.0-2.2); ALKALINE PHOSPHATASE 84 IU/L (42-121); ALT ALANINE AMINOTRANSFERASE 23 IU/L (10-60); AST ASPARTATE AMINOTRANSFERASE 31 IU/L (10-42); BILIRUBIN,TOTAL 1.1 mg/dL (0.2-1.0); BUN - BLOOD UREA NITROGEN 16 mg/dL (6-20); CALCIUM 9.4 mg/dL (8.5-10.3); CARBON DIOXIDE - CO2 27 mmol/L (21-32); CHLORIDE 99 mmol/L (101-111); CHOL/HDL RATIO 3.6 (<4.4); CHOLESTEROL 285 mg/dL; CREATININE 0.9 mg/dL (0.4-1.0); GFR - MDRD 65 (>89); GLUCOSE 93 mg/dL (70-100); HDL CHOLESTEROL 80 mg/dL; LDL CHOLESTEROL,CALCULATED 148 mg/dL; LDL/HDL RATIO 1.9 (<4.4); POTASSIUM 3.8 mmol/L (3.5-5.0); SODIUM 138 mmol/L (135-145); TOTAL PROTEIN 7.9 g/dL (6.7-8.2); TRIGLYCERIDES 284 mg/dL; VLDL CHOLESTEROL 57 mg/dL
[2021-09-20 08:40] LABS: THYROID STIMULATING HORMONE 1.83 uIU/mL (0.34-5.60)
== END 2021-09-20 07:55 | disposition home or self-care (01) ==
LOC: LAB 07:54
PROVIDERS: ATTEND Registered Nurse
DX: I48.91 Unspecified atrial fibrillation (principal); E78.2 Mixed hyperlipidemia; G43.909 Migraine, unspecified, not intractable, without status migrainosus; I10 Essential (primary) hypertension; Z13.29 Encounter for screening for other suspected endocrine disorder
CPT/HCPCS: 36415; 80053; 80061; 83721; 84443; 85025

== ENCOUNTER 2021-12-13 10:15 | Outpatient (CLI) | payer BC ==
--- NOTE | 2021-12-13 11:07 | XRAY Report ---
PROCEDURE: Knee 4 View LT INDICATIONS: KNEE PAIN TECHNIQUE: 3 views of the left knee(s) were acquired. AP view of both knees. COMPARISON: January 24, 2019. FINDINGS: BONES/JOINT: No acute, displaced fracture or dislocation. No substantial suprapatellar joint effusio n. Mild narrowing of the medial compartment joint space. Tricompartment osteophytosis. Calcific densi ties are seen about the knee, which may reflect intra-articular bodies. SOFT TISSUES: No significant abnormality. IMPRESSION: 1.Knee degeneration as detailed above. Reviewed by: Albino Skinner MD on 12/13/2021 11:06 AM PDT Approved by: Albino Skinner MD on 12/13/2021 11:06 AM PDT Station ID: [id number]
== END 2021-12-13 23:59 | disposition home or self-care (01) ==
LOC: DI.WOS 10:15
PROVIDERS: ATTEND Physician Assistant
DX: M17.12 Unilateral primary osteoarthritis, left knee (principal)

== ENCOUNTER 2023-01-05 08:42 | Outpatient (CLI) | payer BC ==
[2023-01-05 08:56] LABS: BASOPHILS % (AUTO) 0.9 %; EOSINOPHILS % (AUTO) 1.2 %; HCT - HEMATOCRIT 41.2 % (37.0-47.0); HGB - HEMOGLOBIN 13.9 g/dL (12.0-16.0); LYMPHOCYTES # (AUTO) 1.6 10^3/uL (1.5-3.5); LYMPHOCYTES % (AUTO) 45.2 %; MEAN CORPUSCULAR HEMOGLOBIN 31.3 pg (27.0-31.0); MEAN CORPUSCULAR HGB CONC 33.7 g/dL (32.0-36.0); MEAN CORPUSCULAR VOLUME 92.8 fL (81.0-99.0); MEAN PLATELET VOLUME 10.1 fL (7.9-10.8); MONOCYTES # (AUTO) 0.3 10^3/uL (0.0-1.0); MONOCYTES % (AUTO) 9.6 %; NEUTROPHILS # (AUTO) 1.5 10^3/uL (1.5-6.6); NEUTROPHILS % (AUTO) 42.8 %; PLT - PLATELET COUNT 190 10^3/uL (130-450); RED BLOOD COUNT 4.44 10^6/uL (4.20-5.40); RED CELL DISTRIBUTION WIDTH 11.6 % (12.0-15.0); WHITE BLOOD COUNT 3.5 x10^3/uL (4.8-10.8)
[2023-01-05 09:15] LABS: ALBUMIN 4.7 g/dL (3.2-5.5); ALBUMIN/GLOBULIN RATIO 1.4 (1.0-2.2); ALKALINE PHOSPHATASE 70 IU/L (42-121); ALT ALANINE AMINOTRANSFERASE 24 IU/L (10-60); AST ASPARTATE AMINOTRANSFERASE 32 IU/L (10-42); BILIRUBIN,TOTAL 0.6 mg/dL (0.2-1.0); BUN - BLOOD UREA NITROGEN 21 mg/dL (6-20); CALCIUM 9.5 mg/dL (8.5-10.3); CARBON DIOXIDE - CO2 30 mmol/L (21-32); CHLORIDE 104 mmol/L (101-111); CHOLESTEROL 358 mg/dL; GFR - MDRD 57 (>89); GLUCOSE 98 mg/dL (70-100); HDL CHOLESTEROL 90 mg/dL; LDL CHOLESTEROL,CALCULATED 197 mg/dL; LDL/HDL RATIO 2.2 (<4.4); POTASSIUM 4.1 mmol/L (3.5-5.0); SODIUM 141 mmol/L (135-145); TOTAL PROTEIN 8.1 g/dL (6.7-8.2); TRIGLYCERIDES 353 mg/dL; VLDL CHOLESTEROL 71 mg/dL
[2023-01-05 09:25] LABS: THYROID STIMULATING HORMONE 1.67 uIU/mL (0.34-5.60)
== END 2023-01-05 08:43 | disposition home or self-care (01) ==
LOC: LAB 08:42
PROVIDERS: ATTEND Registered Nurse
DX: I10 Essential (primary) hypertension (principal); E78.2 Mixed hyperlipidemia; Z79.899 Other long term (current) drug therapy
CPT/HCPCS: 36415; 80053; 80061; 83721; 84443; 85025

== ENCOUNTER 2023-01-27 08:50 | Outpatient (CLI) | payer BC ==
--- NOTE | 2023-01-30 09:52 | Mammography Report ---
BILATERAL DIGITAL SCREENING MAMMOGRAM 3D/2D: 01/27/2023 CLINICAL: Routine screening. Comparison is made to exams dated: 04/16/2020 mammogram, 08/29/2018 mammogram, 08/24/2017 mammogram, mammogram, and 02/24/2016 mammogram - [facility]. There are scattered areas of fibroglandular density in both breasts (category b / 25%-50% glandular t issue). There is a biopsy clip in the right breast. No significant masses, calcifications, or other findings are seen in either breast. There has been no significant interval change. IMPRESSION: NEGATIVE There is no mammographic evidence of malignancy. A 1 year screening mammogram is recommended. Based on the Tyrer Cuzick model (a risk assessment model) the patients lifetime risk is 18.4% and he r 10 year risk is 6.6%. According to the ACR, ACS, and NCCN guidelines, an annual breast MRI exam farheen ng with mammogram is recommended if the patients lifetime risk is 20% or greater. This exam was interpreted at Station ID: [id number]. NOTE: For mammograms, a report in lay terms will be sent to the patient. Approximately 15% of breast malignancies will not be visualized mammographically. In the management of a palpable breast mass, a negative mammogram must not discourage biopsy of a clinically suspicious lesion. Electronically Signed By: Tab william/rickie:01/27/2023 12:57:43 letter sent: No_Letter ACR BI-RADS Category 1: Negative 3341F PARENCHYMAL PATTERN: (A) - The breast(s) demonstrate(s) scattered fibroglandular densities. BI-RADS CATEGORY: (1) - 1 Mammogram [id number] 1 year screening LATERALITY: (B)
== END 2023-01-27 08:51 | disposition home or self-care (01) ==
LOC: DI 08:50
PROVIDERS: ATTEND Registered Nurse
DX: Z12.31 Encounter for screening mammogram for malignant neoplasm of breast (principal)

== ENCOUNTER 2023-12-07 06:25 | Day surgery (SDC) | payer BC ==
[2023-12-07] MEDS: LACTATED RINGERS 1,000 ML IV ONE (06:34)
[2023-12-07] MEDS ORDERED: LIDOCAINE-PF 2% 10 ML AMP SUBQ ONE (07:09)
[2023-12-07] MEDS ORDERED: MIDAZOLAM 2 MG/2 ML VIAL ONE (07:09)
[2023-12-07] MEDS ORDERED: PROPOFOL 500 MG/50 ML 500 MG/50 ML VIAL ONE (07:09)
[2023-12-07] MEDS ORDERED: fentaNYL 100 MCG/2 ML VIAL ONE (07:11)
--- NOTE | 2023-12-07 07:21 | HISTORY & PHYSICAL EXAMINATION ---
Chief Complaint - Chief Complaint Chief Complaint: here for egd and colonoscopy History of Present Illness - History Obtained From Records Reviewed: yes History obtained from: pt Exam Limitations: none - History of Present Illness HPI Comment/Other: hx pain/ difficulty with swallowing and emesis. no improvement with antacids. fhx colon ca brother at early age. her last colonoscopy was 2016. no lower gi sx. 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 she is working at [employer] and living at [facility] POL Patient has POLST: No POLST Status: Full Code Meds/Allgy - Home Medications Home Medications: Ambulatory Orders Medication Instructions Recorded Confirmed Lisinopril 10 mg PO DAILY 01/31/13 12/07/23 Venlafaxine HCl [Venlafaxine HCl 37.5 mg PO DAILY 04/22/19 12/07/23 ER] diltiaZEM CD [Cardizem Cd] 180 mg PO DAILY #10 capsule 04/23/19 12/07/23 - Allergies Allergies/Adverse Reactions: Allergies Allergy/AdvReac Type Severity Reaction Status Date / Time Opioids - Morphine Analogues AdvReac Nausea Verified 12/07/23 07:14 Review of Systems - Other Findings Other Findings: 10 pt ros as above otherwise unremarkable Exam - Vital Signs Vital Signs: Vital Signs x48h Temp Pulse Resp BP Pulse Ox 12/07/23 06:35 36.1 C L 71 13 150/91 H 100 - Physical Exam General Appearance: positive: No acute distress, Alert Eyes Bilateral: positive: PERRL, EOMI ENT: positive: No signs of dehydration Neck: positive: No JVD, Trachea midline Respiratory: positive: No respiratory distress Cardiovascular: positive: Regular rate & rhythm Abdomen: positive: Non-tender, No distention Neurologic/Psychiatric: positive: Oriented x3 Conclusion/Plan - Problem List (1) Colon cancer screening Conclusion/Plan: plan colonscopy and egd. parq held and consent obtained
[2023-12-07] MEDS ORDERED: ONDANSETRON 4 MG/2 ML VIAL ONE (07:28)
--- NOTE | 2023-12-07 07:46 | ANESTHESIA ---
Pre-Anesthesia VS, & Labs - Diagnosis esophageal pain with emesis, screening - Procedure EGD, colonoscopy Vital Signs: Temp Pulse Resp BP Pulse Ox O2 Flow Rate 36.1 C L 71 13 150/91 H 100 12/07/23 06:35 12/07/23 06:35 12/07/23 06:35 12/07/23 06:35 12/07/23 06:35 Height: 5 ft 8 in Weight (kg): 82.8 kg Body Mass Index: 27.7 BMI Classification: Overweight - NPO >8 hours - Is Patient ?: No Home Medications and Allergies Lisinopril 10 mg PO DAILY 01/31/13 Venlafaxine HCl [Venlafaxine HCl ER] 37.5 mg PO DAILY 04/22/19 Allergies/Adverse Reactions: Allergies Allergy/AdvReac Type Severity Reaction Status Date / Time Opioids - Morphine Analogues AdvReac Nausea Verified 12/07/23 07:14 Anes History & Medical History - Anesthetic History Anesthesia Complications: reports: No previous complications Family history of Anesthesia Complications: Denies Family history of Malignant Hyperthermia: Denies - Medical History Cardiovascular: reports: Hypertension, Atrial fibrillation (hx of A Fib, now controlled SR with meds) Pulmonary: reports: Other (recent cold, current "tickle") Gastrointestinal: reports: GERD Urinary: reports: None Neuro: reports: None, Other Musculoskeletal: reports: None Endocrine/Autoimmune: reports: None Blood Disorders: reports: None Skin: reports: None Smoking Status: Never smoker - Surgical History General: reports: Appendectomy, Colonoscopy Gynecologic: reports: section, 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 Orthopedic: reports: Other Exam General: Alert, Oriented x3, Cooperative Dental: WNL Mouth Openin Fingerbreadth Neck Mobility: Reduced Mallampati classification: II Thyromental Distance: less than 4 cm Respiratory: Lungs clear Cardiovascular: Regular rate Plan Anesthesia Type: General, Total IV Consent for Procedure(s) Verified and Reviewed: Yes Code Status: Attempt Resuscitation ASA classification: 2-Mild systemic disease Is this case an emergency?: No
[2023-12-07] MEDS ORDERED: PROPOFOL 200 MG/20 ML VIAL IVP ONE (08:05)
[2023-12-07] MEDS: LACTATED RINGERS 600 ML IV ONE (08:34)
[2023-12-07 08:49] VITALS: BP 108/68; O2SAT 100
--- NOTE | 2023-12-07 10:24 | ANESTHESIA POST OP EVALUATION ---
Anesthesia Post Eval - Post Anesthesia Eval Vitals: Last Vital Signs Temp 36.5 C 12/07/23 08:29 Pulse 72 12/07/23 08:44 Resp 18 12/07/23 08:44 BP 108/68 12/07/23 08:44 Pulse Ox 100 12/07/23 08:44 O2 Flow Rate CV Function Including HR & BP: Stable Pain Control: Satisfactory Nausea & Vomiting: Negative Mental Status: Baseline Respiratory Status: Airway Patent Hydration Status: Satisfactory Anesthesia Complications: None
== END 2023-12-07 06:26 | disposition home or self-care (01) ==
LOC: SDS 06:25
PROVIDERS: ATTEND Surgery
PROC: 0DB68ZX Excision of Stomach, Via Natural or Artificial Opening Endoscopic, Diagnostic (ICD-10-PCS; 2023-12-07)
PROC: 0DB28ZX Excision of Middle Esophagus, Via Natural or Artificial Opening Endoscopic, Diagnostic (ICD-10-PCS; 2023-12-07)
PROC: 0DB38ZX Excision of Lower Esophagus, Via Natural or Artificial Opening Endoscopic, Diagnostic (ICD-10-PCS; 2023-12-07)
PROC: 0DBK8ZZ Excision of Ascending Colon, Via Natural or Artificial Opening Endoscopic (ICD-10-PCS; principal; 2023-12-07 07:30)
PROC: 0DB98ZX Excision of Duodenum, Via Natural or Artificial Opening Endoscopic, Diagnostic (ICD-10-PCS; 2023-12-07 07:30)
DX: Z12.11 Encounter for screening for malignant neoplasm of colon (principal); D12.2 Benign neoplasm of ascending colon; K57.30 Diverticulosis of large intestine without perforation or abscess without bleeding; K21.9 Gastro-esophageal reflux disease without esophagitis; K29.50 Unspecified chronic gastritis without bleeding; K44.9 Diaphragmatic hernia without obstruction or gangrene; R13.10 Dysphagia, unspecified; K30 Functional dyspepsia; R11.10 Vomiting, unspecified; Z80.0 Family history of malignant neoplasm of digestive organs; I10 Essential (primary) hypertension
CPT/HCPCS: 43239; 45380; J7120

== ENCOUNTER 2024-01-11 08:04 | Outpatient (CLI) | payer BC ==
[2024-01-11 08:13] LABS: BASOPHILS % (AUTO) 1.1 %; EOSINOPHILS # (AUTO) 0.1 10^3/uL (0.0-0.7); EOSINOPHILS % (AUTO) 1.7 %; HCT - HEMATOCRIT 39.7 % (37.0-47.0); HGB - HEMOGLOBIN 13.3 g/dL (12.0-16.0); LYMPHOCYTES # (AUTO) 1.6 10^3/uL (1.5-3.5); LYMPHOCYTES % (AUTO) 46.3 %; MEAN CORPUSCULAR HEMOGLOBIN 30.9 pg (27.0-31.0); MEAN CORPUSCULAR HGB CONC 33.5 g/dL (32.0-36.0); MEAN CORPUSCULAR VOLUME 92.1 fL (81.0-99.0); MEAN PLATELET VOLUME 10.1 fL (7.9-10.8); MONOCYTES # (AUTO) 0.3 10^3/uL (0.0-1.0); MONOCYTES % (AUTO) 8.3 %; NEUTROPHILS # (AUTO) 1.5 10^3/uL (1.5-6.6); NEUTROPHILS % (AUTO) 42.3 %; PLT - PLATELET COUNT 198 10^3/uL (130-450); RED BLOOD COUNT 4.31 10^6/uL (4.20-5.40); RED CELL DISTRIBUTION WIDTH 11.7 % (12.0-15.0); WHITE BLOOD COUNT 3.5 x10^3/uL (4.8-10.8)
[2024-01-11 08:34] LABS: ALBUMIN 4.7 g/dL (3.2-5.5); ALBUMIN/GLOBULIN RATIO 1.5 (1.0-2.2); ALKALINE PHOSPHATASE 84 IU/L (42-121); ALT ALANINE AMINOTRANSFERASE 20 IU/L (10-60); AST ASPARTATE AMINOTRANSFERASE 30 IU/L (10-42); BILIRUBIN,TOTAL 0.7 mg/dL (0.2-1.0); BUN - BLOOD UREA NITROGEN 23 mg/dL (6-20); CALCIUM 9.9 mg/dL (8.5-10.3); CARBON DIOXIDE - CO2 28 mmol/L (21-32); CHLORIDE 101 mmol/L (101-111); CHOL/HDL RATIO 3.8 (<4.4); CHOLESTEROL 330 mg/dL; CREATININE 1.1 mg/dL (0.6-1.3); GFR - MDRD 51 (>89); GLUCOSE 100 mg/dL (74-104); HDL CHOLESTEROL 86 mg/dL; POTASSIUM 4.1 mmol/L (3.5-4.5); SODIUM 137 mmol/L (135-145); TOTAL PROTEIN 7.8 g/dL (6.4-8.9); TRIGLYCERIDES 413 mg/dL (48-352)
[2024-01-11 08:47] LABS: LDL CHOLESTEROL,DIRECT 200 mg/dL (75-193); LDLD/HDL RATIO 2.3 (<4.4)
[2024-01-11 08:49] LABS: THYROID STIMULATING HORMONE 1.75 uIU/mL (0.34-5.60)
== END 2024-01-11 08:05 | disposition home or self-care (01) ==
LOC: LAB 08:04
PROVIDERS: ATTEND Registered Nurse
DX: I10 Essential (primary) hypertension (principal); E78.2 Mixed hyperlipidemia; Z13.29 Encounter for screening for other suspected endocrine disorder
CPT/HCPCS: 36415; 80053; 80061; 83721; 84443; 85025

== ENCOUNTER 2024-01-29 08:12 | Outpatient (CLI) | payer BC ==
--- NOTE | 2024-01-29 09:33 | XRAY Report ---
PROCEDURE: Cervical Spine w/Flex/Ext 6+V INDICATIONS: CERVICAL RADICULOPATHY TECHNIQUE: 7 views of the cervical spine were acquired. COMPARISON: None. FINDINGS: Bones: No fractures or dislocations to the T1 level. No suspicious bony lesions. Trace retrolisthe sis of C5 on C6 without abnormal motion on flexion and extension. There is normal range of motion bet ween flexion and extension, with no abnormal motion noted. Oblique images: At least moderate bony foraminal narrowing is noted on the left involving C5-C6 and C 6-C7. On the right, there is at least moderate bony foraminal narrowing at C6-C7. Soft tissues: Prevertebral soft tissues are normal in thickness. IMPRESSION: 1. No acute cervical fracture or dislocation. 2. No abnormal motion on flexion and extension. 3. Multilevel bony foraminal narrowing Reviewed by: Bentley Wang MD on 01/29/2024 9:31 AM PDT Approved by: Bentley Wang MD on 01/29/2024 9:31 AM PDT Station ID: [id number]
== END 2024-01-29 08:13 | disposition home or self-care (01) ==
LOC: DI 08:12
PROVIDERS: ATTEND Registered Nurse
DX: M48.02 Spinal stenosis, cervical region (principal)